=== PATIENT | male | born 1955 | race Hispanic/Latino ===

== ENCOUNTER 2021-08-03 10:28 | Inpatient (IN) | payer MEDICARE ==
--- NOTE | 2021-08-03 11:02 | Event Note ---
ED Screening Note Date of service: 08/03/21 Time: 10:59 ED Screening Note: 65-year-old male presents to the ER by private vehicle with complaints of shortness of breath. Patient states that he was diagnosed with COVID-19 around [place]. He was hospitalized at [facility] for a week. He states that he signed out AMA. He states that he had felt a little better after he left the hospital, but a day later his shortness of breath started to flareup again. Patient states that he went and got his own home oxygen and has been putting himself on 6 L a day and he states that even on 6 L he cannot get above 92%. He also admits that he was diagnosed with a left leg DVT while he was hospital ized at [place] but because he left AMA he has not been on any anticoagulants. He denies any lower extremity pain or swelling. He denies any fever since leaving the hospital. He states that he still has a cough and chest tightness but denies any wheezing, nausea, vomiting, diarrhea or abdominal pain. Patient past medical history significant for diabetes, hypertension, hyperlipidemia, COVID-19, left lower extremity DVT This initial assessment/diagnostic orders/clinical plan/treatment(s) is/are subject to change based on patients health status, clinical progression and re- assessment by fellow clinical providers in the ED. Further treatment and workup at subsequent clinical providers discretion. Patient/guardian urged not to elope from the ED as their condition may be serious if not clinically assessed and managed. Initial orders include: Labs including chest x-ray and CTA chest and EKG
[2021-08-03] MEDS ORDERED: dexAMETHasone 4 MG/ML VIAL IV ONE (11:03)
--- NOTE | 2021-08-03 11:17 | Emergency Department Report ---
ED General Adult HPI - General Chief complaint: Dyspnea/Respdistress Stated complaint: COVID/ SHORTNESS OF BREATH PUI?: Yes Time Seen by Provider: 08/03/21 11:03 Source: patient, RN notes reviewed Mode of arrival: Wheelchair Limitations: No Limitations - History of Present Illness Initial comments: The patient was evaluated in the emergency department for symptoms described in the history of present illness. He/she was evaluated in the context of the global COVID-19 pandemic, which necessitated consideration that the patient might be at risk for infection with the virus that causes COVID-19. Institutional protocols and algorithms that pertain to the evaluation of patients at risk for COVID-19 are in a state of rapid change based on information released by regulatory bodies including the CDC and federal and state organizations. These policies and algorithms were followed during the patient's care in the emergency department. Please note that these policies, procedures and recommendations changed on a rapid basis. This patient is a pleasant 65-year-old gentleman. He reports a past medical history of diabetes and COVID-19. Patient reports that he was initially diagnosed with COVID-19 around 2020, and subsequently felt like he recovered. He further reports that he was seen at [facility] in the beginning of this month, for recurrent shortness of breath, he believes he had a CT angiogram of the chest which was negative for acute findings, and a lower extremity DVT study which she believes was positive for DVT, but he does not know if it is distal or at the level of the popliteal trifurcation. He reports that at that time, admission was recommended, for unclear reasons to himself, and he signed out AGAINST MEDICAL ADVICE. He presents to the ER today with a complaint of painless shortness of breath. He denies headache, neck pain, abdominal pain, vomiting, hematemesis and bright red blood per rectum. He is on supplemental oxygen, and reports that he feels improved. He reports that after his initial diagnosis of COVID-19, he "felt a lot better and was running around", and reports that his shortness of breath has gradually gotten worse over the past few weeks. -: Gradual, days(s), week(s) Consistency: constant Improves with: rest, other (Supplemental oxygen) Worsens with: movement - Related Data Allergies Allergy/AdvReac Type Severity Reaction Status Date / Time No Known Allergies Allergy Unverified 08/03/21 10:30 ED Review of Systems ROS: Stated complaint: COVID/ SHORTNESS OF BREATH Other details as noted in HPI Constitutional: malaise, weakness Eyes: denies: eye discharge ENT: congestion Respiratory: shortness of breath Cardiovascular: dyspnea on exertion. denies: chest pain Gastrointestinal: denies: hematemesis, melena, hematochezia Musculoskeletal: denies: myalgia Neurological: weakness Hematological/Lymphatic: denies: easy bleeding ED Past Medical Hx - Past Medical History Hx Hypertension: Yes Hx Diabetes: Yes Additional medical history: COVID - Surgical History Additional Surgical History: ACHILLES WRIST BOWEL RESECTION ED Physical Exam - General Limitations: Physical Limitation General appearance: alert, anxious, in distress - Head Head exam: Present: atraumatic, normocephalic - Eye Eye exam: Present: normal appearance, EOMI. Absent: nystagmus - ENT ENT exam: Present: normal exam, normal orophraynx, mucous membranes moist, normal external ear exam - Neck Neck exam: Present: normal inspection, full ROM. Absent: tenderness, meningismus - Respiratory Respiratory exam: Present: respiratory distress, accessory muscle use. Absent: wheezes, rales, rhonchi, stridor - Cardiovascular Cardiovascular Exam: Present: normal rhythm, tachycardia, normal heart sounds. Absent: bradycardia, irregular rhythm, systolic murmur, diastolic murmur, rubs, gallop - GI/Abdominal GI/Abdominal exam: Present: soft. Absent: distended, tenderness, guarding, rebound, rigid, pulsatile mass - Rectal Rectal exam: Present: deferred - Extremities Exam Extremities exam: Present: normal inspection, full ROM, pedal edema (1+ edema in the bilateral lower extremities), other (2+ pulses noted in the bilateral upper and lower extremities. There is no long bony tenderness. The muscular compartments are soft.). Absent: calf tenderness - Back Exam Back exam: Present: normal inspection. Absent: tenderness, CVA tenderness (R), CVA tenderness (L), paraspinal tenderness, vertebral tenderness - Neurological Exam Neurological exam: Present: alert, oriented X3, other (No facial droop. Tongue midline. Extraocular movements intact bilaterally. Facial sensation intact to light touch in V1, V2, V3 distribution bilaterally. 5 and a 5 strength in 4 extremities. Sensation intact to light touch in 4 extremities.). Absent: motor sensory deficit - Psychiatric Psychiatric exam: Present: anxious - Skin Skin exam: Present: warm, dry, intact, normal color. Absent: rash ED Course Vital Signs 08/03/21 10:34 Temperature 98.3 F Pulse Rate 102 H Respiratory 26 H Rate Blood Pressure 136/70 O2 Sat by Pulse 86 Oximetry - Reevaluation(s) Reevaluation #1: 08/03/21 11:47 Differential diagnosis, including but not limited to: Pulmonary embolism, COVID- 19 long-hauler, COVID lung, history of DVT, acute on chronic hypoxic respiratory failure Assessment and plan: 65-year-old gentleman, presenting during the COVID-19 pandemic, with COVID long-haul symptoms. Place patient in isolation, start steroids, administer supplemental oxygen, attempt to obtain medical records from [facility], obtain appropriate laboratory studies, and CT angiogram of the chest. I have recommended adm ission. I discussed this plan of care with the patient. He articulated understanding. Reassess after acquisition of data points 08/03/21 13:21 Laboratory studies reviewed and appreciated. Inflammatory markers elevated as anticipated. Admitted to internal medicine service under the care of Dr. Interiano. Patient will be observed in this ER as well, and we will follow-up on CT angiogram chest. Robitussin ordered for antitussive symptomatic request from patient. ED Medical Decision Making - Lab Data Result diagrams: 08/03/21 11:28 08/03/21 11:28 Vital Signs 08/03/21 10:34 Temperature 98.3 F Pulse Rate 102 H Respiratory 26 H Rate Blood Pressure 136/70 O2 Sat by Pulse 86 Oximetry Lab Results 08/03/21 08/03/21 08/03/21 Range/Units 11:28 11:28 11:28 WBC 7.4 (4.5-11.0) K/mm3 RBC 4.41 (3.65-5.03) M/mm3 Hgb 12.8 (11.8-15.2) gm/dl Hct 39.1 (35.5-45.6) % MCV 89 (84-94) fl MCH 29 (28-32) pg MCHC 33 (32-34) % RDW 13.5 (13.2-15.2) % Plt Count 262 (140-440) K/mm3 Lymph % (Auto) 15.4 (13.4-35.0) % [place] % (Auto) 9.9 H (0.0-7.3) % Eos % (Auto) 1.2 (0.0-4.3) % Baso % (Auto) 0.5 (0.0-1.8) % Lymph # (Auto) 1.1 L (1.2-5.4) K/mm3 [place] # (Auto) 0.7 (0.0-0.8) K/mm3 Eos # (Auto) 0.1 (0.0-0.4) K/mm3 Baso # (Auto) 0.0 (0.0-0.1) K/mm3 Seg Neutrophils % 73.0 H (40.0-70.0) % Seg Neutrophils # 5.4 (1.8-7.7) K/mm3 PT 12.9 (12.2-14.9) Sec. INR 0.88 (0.87-1.13) D-Dimer 1615.65 H (0-234) ng/mlDDU Sodium 140 (137-145) mmol/L Potassium 4.5 (3.6-5.0) mmol/L Chloride 99.2 (98-107) mmol/L Carbon Dioxide 26 (22-30) mmol/L Anion Gap 19 mmol/L BUN 9 (9-20) mg/dL Creatinine 0.8 (0.8-1.3) mg/dL Estimated GFR > 60 ml/min BUN/Creatinine Ratio 11 % Glucose 174 H (75-100) mg/dL Calcium 9.7 (8.4-10.2) mg/dL Magnesium (1.7-2.3) mg/dL Ferritin (30.0-300.0) ng/mL Total Bilirubin 0.50 (0.1-1.2) mg/dL AST 25 (5-40) units/L ALT 39 (7-56) units/L Alkaline Phosphatase 62 (35-129) units/L Lactate Dehydrogenase (91-180) units/L Troponin T < 0.010 (0.00-0.029) ng/mL C-Reactive Protein (0.00-1.30) mg/dL NT-Pro-B Natriuret Pep 595.3 (0-900) pg/mL Total Protein 7.7 (6.3-8.2) g/dL Albumin 3.4 L (3.9-5) g/dL Albumin/Globulin Ratio 0.8 % 08/03/21 08/03/21 Range/Units 11:28 11:28 WBC (4.5-11.0) K/mm3 RBC (3.65-5.03) M/mm3 Hgb (11.8-15.2) gm/dl Hct (35.5-45.6) % MCV (84-94) fl MCH (28-32) pg MCHC (32-34) % RDW (13.2-15.2) % Plt Count (140-440) K/mm3 Lymph % (Auto) (13.4-35.0) % [place] % (Auto) (0.0-7.3) % Eos % (Auto) (0.0-4.3) % Baso % (Auto) (0.0-1.8) % Lymph # (Auto) (1.2-5.4) K/mm3 [place] # (Auto) (0.0-0.8) K/mm3 Eos # (Auto) (0.0-0.4) K/mm3 Baso # (Auto) (0.0-0.1) K/mm3 Seg Neutrophils % (40.0-70.0) % Seg Neutrophils # (1.8-7.7) K/mm3 PT (12.2-14.9) Sec. INR (0.87-1.13) D-Dimer (0-234) ng/mlDDU Sodium (137-145) mmol/L Potassium (3.6-5.0) mmol/L Chloride (98-107) mmol/L Carbon Dioxide (22-30) mmol/L Anion Gap mmol/L BUN (9-20) mg/dL Creatinine (0.8-1.3) mg/dL Estimated GFR ml/min BUN/Creatinine Ratio % Glucose 178 H (75-100) mg/dL Calcium (8.4-10.2) mg/dL Magnesium 1.80 (1.7-2.3) mg/dL Ferritin 296.5 (30.0-300.0) ng/mL Total Bilirubin (0.1-1.2) mg/dL AST (5-40) units/L ALT (7-56) units/L Alkaline Phosphatase (35-129) units/L Lactate Dehydrogenase 426 H (91-180) units/L Troponin T (0.00-0.029) ng/mL C-Reactive Protein 7.10 H (0.00-1.30) mg/dL NT-Pro-B Natriuret Pep (0-900) pg/mL Total Protein (6.3-8.2) g/dL Albumin (3.9-5) g/dL Albumin/Globulin Ratio % - EKG Data -: EKG Interpreted by Nh EKG shows normal: sinus rhythm Rate: normal - EKG Data When compared to previous EKG there are: previous EKG unavailable 08/03/21 11:59 EKG is interpreted at 11: 42 Sinus rhythm, rate 92 bpm. Left axis deviation. Normal P wave axis. Left ventricular hypertrophy. Motion artifact. MD interval acceptable/within normal limits. QTc 461 ms. This is not a STEMI. There is no prior for comparison - Radiology Data Radiology results: report reviewed, image reviewed CHEST 1 VIEW 08/03/2021 11:52 AM INDICATION / CLINICAL INFORMATION: Dyspnea. COMPARISON: None available. FINDINGS: SUPPORT DEVICES: None. HEART / MEDIASTINUM: Cardiomegaly LUNGS / PLEURA: Diffuse opacities in bilateral lungs No pneumothorax. ADDITIONAL FINDINGS: No significant additional findings. IMPRESSION: 1. Diffuse bilateral pulmonary opacities Signer Name: Darian Santos MD Signed: 08/03/2021 11:06 AM Workstation Name: [email or web address] CTA CHEST WITH IV CONTRAST INDICATION: acute dyspnea, hx of dvt, covid. TECHNIQUE: Axial CT images were obtained through the chest after injection of IV contrast. 3 plane MIP reconstructions were produced. All CT scans at this location are performed using CT dose reduction for ALARA by means of automated exposure control. COMPARISON: None available. FINDINGS: Pulmonary Arteries: Respiratory motion evaluation of the peripheral pulmonary arterial tree, particularly in the bases. Accounting for this, no acute PTE is seen. Thoracic Aorta: No acute abnormality. Heart: Overall heart size is normal. There is moderate coronary artery calcification. Lungs: Patchy predominantly peripheral airspace opacities are noted bilaterally. Pleura: There are trace pleural ef fusions. No pneumothorax. Lymph Nodes: No significant adenopathy. Additional Findings: None. Upper Abdomen: No acute findings. Skeletal Structures: No significant osseous abnormality. Healed anterior inferior right rib fractures are incidentally noted. IMPRESSION: 1. There is significant respiratory motion which limits evaluation of the peripheral pulmonary arterial tree. No central PTE is seen in the main, right, and left pulmonary arteries. 2. Somewhat patchy predominantly peripheral bilateral airspace opacities are nonspecific but most likely due to pneumonia. There are trace bilateral pleural effusions. Signer Name: Stephen Castaneda MD Signed: 08/03/2021 12:50 PM Workstation Name: [email or web address] Critical Care Time: Yes Critical care time in (mins) excluding proc time.: 35 Critical care attestation.: If time is entered above; I have spent that time in minutes in the direct care of this critically ill patient, excluding procedure time. ED Disposition Clinical Impression: Acute respiratory failure with hypoxia, COVID-19 Disposition: 09 ADMITTED INPATIENT Is pt being admited?: Yes Does the pt Need Aspirin: No Condition: Fair
[2021-08-03] MEDS ORDERED: AZITHROMYCIN/NS 500 MG/250 ML 500 MG/250 ML BAG IV ONE (11:58)
[2021-08-03] MEDS ORDERED: cefTRIAXone/NS 1 GM/50 ML 1 GM/50 ML BAG IV ONE (11:58)
--- NOTE | 2021-08-03 12:10 | XRay Report ---
CHEST 1 VIEW 08/03/2021 11:52 AM INDICATION / CLINICAL INFORMATION: Dyspnea. COMPARISON: None available. FINDINGS: SUPPORT DEVICES: None. HEART / MEDIASTINUM: Cardiomegaly LUNGS / PLEURA: Diffuse opacities in bilateral lungs No pneumothorax. ADDITIONAL FINDINGS: No significant additional findings. IMPRESSION: 1. Diffuse bilateral pulmonary opacities Signer Name: Darian Santos MD Signed: 08/03/2021 12:06 PM Workstation Name: [email or web address] [email or web address]
[2021-08-03 12:46] LABS: Basophils % (Auto) 0.5 % (0.0-1.8); Eosinophils # (Auto) 0.1 K/mm3 (0.0-0.4); Eosinophils % (Auto) 1.2 % (0.0-4.3); Hematocrit 39.1 % (35.5-45.6); Hemoglobin 12.8 gm/dl (11.8-15.2); Lymphocytes # (Auto) 1.1 K/mm3 (1.2-5.4); Lymphocytes % (Auto) 15.4 % (13.4-35.0); Mean Corpuscular HGB Conc 33 % (32-34); Mean Corpuscular Volume 89 fl (84-94); Monocytes # (Auto) 0.7 K/mm3 (0.0-0.8); Monocytes % (Auto) 9.9 % (0.0-7.3); Platelet Count 262 K/mm3 (140-440); Red Blood Count 4.41 M/mm3 (3.65-5.03); Red Cell Distribution Width 13.5 % (13.2-15.2)
[2021-08-03 12:56] LABS: INR 0.88 (0.87-1.13)
[2021-08-03 13:09] LABS: Alanine Aminotransferase 39 units/L (7-56); Albumin 3.4 g/dL (3.9-5); BUN/Creatinine Ratio 11; Blood Urea Nitrogen 9 mg/dL (9-20); Calcium 9.7 mg/dL (8.4-10.2); Hemolysis Index 30
[2021-08-03 13:10] LABS: C-Reactive Protein 7.1 mg/dL (0.00-1.30)
[2021-08-03] MEDS ORDERED: guaiFENesin 100 MG/5 ML ORAL LIQD PO ONE (13:16)
--- NOTE | 2021-08-03 13:21 | History and Physical Report ---
History of Present Illness Chief complaint: My breathing is bad again History of present illness: 65 YO Male with HTN, DM, Metabolic Syndrome, Coronavirus Infectioin Diagnosed 07/11/2021 presents to ED for evaluation. Patient reports "my breathing has gotten bad again". Patient states that he had experienced shortness of breath over the past 2 weeks with persistent and worsening symptoms over the past 1 week. Patient acknowledges malaise, dry cough, shortness of breath, decreased exercise tolerance, subjective fever. Patient transported to [facility] via private vehicle for further care and evaluation of the aforementioned symptoms. The patient was seen and evaluated the emergency department. All lab and medica tions reviewed. Patient was found to have a pulse oximetry of 86% on room air which is consistent with acute hypoxemic respiratory failure. Chest x-ray revealed evidence of pneumonia. Patient admitted to medical floor due to increased risk of worsening symptoms. Patient initiated on pneumonia protocol as well as coronavirus protocol. Patient knowledges subjective fever denies chills, chest pain, palpitation, skin rash, recent ill contacts. Patient previously diagnosed with COVID-19. No prior admission for review. No medication listed at time of admission for reconciliation. Advanced care planning conducted in ED. Past History Past Medical History: diabetes, hypertension, other (See HPI) Past Surgical History: bowel surgery Social history: . denies: smoking, alcohol abuse, prescription drug abuse Family history: diabetes, hypertension Medications and Allergies Allergies Allergy/AdvReac Type Severity Reaction Status Date / Time No Known Allergies Allergy Unverified 08/03/21 10:30 Review of Systems Constitutional: fever, fatigue, weakness, malaise Ears, nose, mouth and throat: no ear pain, no tinnitis, no decreased hearing, no nose pain, no nasal congestion Cardiovascular: no chest pain, no orthopnea, no rapid/irregular heart beat, no edema Respiratory: cough, shortness of breath, no wheezing, no pleurisy Gastrointestinal: no abdominal pain, no nausea, no vomiting, no diarrhea, no constipation Genitourinary Male: no hematuria, no flank pain, no discharge, no urinary frequency, no urinary hesitancy Rectal: no pain, no incontinence, no bleeding Musculoskeletal: no neck stiffness, no shooting arm pain, no low back pain, no shooting leg pain Integumentary: no rash, no redness, no sores, no wounds, no jaundice Neurological: no head injury, no weakness, no numbness, no tingling Psychiatric: no anxiety, no insomnia Endocrine: no cold intolerance, no polyphagia, no excessive thirst, no nocturia Hematologic/Lymphatic: no easy bruising, no easy bleeding, no lymphadenopathy Allergic/Immunologic: no urticaria, no allergic rhinitis, no persistent infections Exam - Constitutional Vitals: Temp Pulse Resp BP Pulse Ox 98.3 F 102 H 26 H 136/70 86 08/03/21 10:34 08/03/21 10:34 08/03/21 10:34 08/03/21 10:34 08/03/21 10:34 General appearance: Present: mild distress - EENT Eyes: Present: PERRL ENT: hearing intact, clear oral mucosa - Neck Neck: Present: supple, normal ROM - Respiratory Respiratory effort: labored, accessory muscle use Respiratory: bilateral: diminished, rhonchi - Cardiovascular Heart Sounds: Present: S1 & S2. Absent: rub, click - Extremities Extremities: pulses symmetrical, No edema Peripheral Pulses: within normal limits - Abdominal General gastrointestinal: Present: soft, non-tender, non-distended, normal bowel sounds Male genitourinary: Present: normal - Integumentary Integumentary: Present: clear, warm, dry - Musculoskeletal Musculoskeletal: gait normal, strength equal bilaterally - Psychiatric Psychiatric: appropriate mood/affect, intact judgment & insight - Neurologic Neurologic: CNII-XII intact, moves all extremities HEART Score - HEART Score Troponin: Troponin T < 0.010 ng/mL (0.00-0.029) 08/03/21 11:28 Results - Labs CBC & Chem 7: 08/03/21 11:28 08/03/21 11:28 Labs: Abnormal lab results 08/03/21 08/03/21 08/03/21 Range/Units 11:28 11:28 11:28 [place] % (Auto) 9.9 H (0.0-7.3) % Lymph # (Auto) 1.1 L (1.2-5.4) K/mm3 Seg Neutrophils % 73.0 H (40.0-70.0) % D-Dimer 1615.65 H (0-234) ng/mlDDU Glucose 174 H (75-100) mg/dL Lactate Dehydrogenase (91-180) units/L C-Reactive Protein (0.00-1.30) mg/dL Albumin 3.4 L (3.9-5) g/dL 08/03/21 Range/Units 11:28 [place] % (Auto) (0.0-7.3) % Lymph # (Auto) (1.2-5.4) K/mm3 Seg Neutrophils % (40.0-70.0) % D-Dimer (0-234) ng/mlDDU Glucose 178 H (75-100) mg/dL Lactate Dehydrogenase 426 H (91-180) units/L C-Reactive Protein 7.10 H (0.00-1.30) mg/dL Albumin (3.9-5) g/dL Assessment and Plan - Patient Problems (1) Acute respiratory failure with hypoxia Current Visit: Yes Status: Acute Plan to address problem: Chest x-ray, supplemental oxygen, pulse oximetry, nebulizer therapy, pulmonary toilet, will consider high flow supplemental oxygen if patient is unable to name pulse oximetry on supplemental oxygen with nasal cannula, pulmonary toilet. (2) Pneumonia Current Visit: Yes Status: Acute Plan to address problem: Protocol: Chest x-ray, CBC, CMP, supplemental oxygen, pulse oximetry, nebulizer therapy, IV antibiotic therapy. (3) COVID-19 Current Visit: Yes Status: Acute Plan to address problem: Coronavirus protocol: IV antibiotic therapy, steroid therapy, supplemental oxygen, pulse oximetry, vitamin C therapy, vitamin D3, zinc therapy, prophylactic anticoagulation. (4) Hypertension Current Visit: Yes Status: Acute Qualifiers: Hypertension type: primary hypertension Qualified Code(s): I10 - Essential (primary) hypertension Plan to address problem: Monitor blood pressure every shift, continue medical management. (5) Diabetes Current Visit: Yes Status: Acute Plan to address problem: Consistent carbohydrate diet, insulin protocol, hypoglycemia protocol, Accu-Cheks. (6) Metabolic syndrome Current Visit: Yes Status: Acute Plan to address problem: Low-cholesterol diet, supportive care, blood glucose control, blood pressure control. Increase physical activity at discharge. (7) DVT prophylaxis Current Visit: Yes Status: Acute Plan to address problem: SCD to bilateral lower extremities while in bed, prophylactic anticoagulation (8) Advance care planning Current Visit: Yes Status: Acute Plan to address problem: Disease education conducted, care plan discussed, diagnosis discussed, prognosis discussed, patient is full code. Patient acknowledges understanding and agreeme nt with care plan, +30 minutes.
[2021-08-03] MEDS ORDERED: ALBUTEROL 2.5 MG/3 ML NEBU IH PRN (13:22)
[2021-08-03] MEDS ORDERED: HYDROmorphone 1 MG/1 ML INJ IV PRN (13:22)
[2021-08-03] MEDS ORDERED: oxyCODONE /ACETAMINOPHEN 5-325MG TAB PO PRN (13:22)
[2021-08-03] MEDS ORDERED: ACETAMINOPHEN 325 MG TAB PO PRN (13:22)
[2021-08-03] MEDS ORDERED: ONDANSETRON 4 MG/2 ML INJ IV PRN (13:22)
[2021-08-03] MEDS: cefTRIAXone/NS 2 GM/100 ML 2 GM/100 ML BAG IV SCH ×2 (13:30→14:28)
--- NOTE | 2021-08-03 13:55 | Cat Scan Report ---
CTA CHEST WITH IV CONTRAST INDICATION: acute dyspnea, hx of dvt, covid. TECHNIQUE: Axial CT images were obtained through the chest after injection of IV contrast. 3 plane MIP reconstru ctions were produced. All CT scans at this location are performed using CT dose reduction for ALARA b y means of automated exposure control. COMPARISON: None available. FINDINGS: Pulmonary Arteries: Respiratory motion evaluation of the peripheral pulmonary arterial tree, particul allison in the bases. Accounting for this, no acute PTE is seen. Thoracic Aorta: No acute abnormality. Heart: Overall heart size is normal. There is moderate coronary artery calcification. Lungs: Patchy predominantly peripheral airspace opacities are noted bilaterally. Pleura: There are trace pleural effusions. No pneumothorax. Lymph Nodes: No significant adenopathy. Additional Findings: None. Upper Abdomen: No acute findings. Skeletal Structures: No significant osseous abnormality. Healed anterior inferior right rib fractures are incidentally noted. IMPRESSION: 1. There is significant respiratory motion which limits evaluation of the peripheral pulmonary arteri al tree. No central PTE is seen in the main, right, and left pulmonary arteries. 2. Somewhat patchy predominantly peripheral bilateral airspace opacities are nonspecific but most lik celine due to pneumonia. There are trace bilateral pleural effusions. Signer Name: Stephen Castaneda MD Signed: 08/03/2021 1:50 PM Workstation Name: [email or web address]
[2021-08-03] MEDS ORDERED: AZITHROMYCIN/NS 500 MG/250 ML 500 MG/250 ML BAG IV SCH (14:00)
[2021-08-03] MEDS: methylPREDNISolone Sod Succinate 40 MG/1 ML INJ IV SCH ×2 (14:29→23:00)
[2021-08-03] MEDS: HEPARIN 5,000 UNIT/1 ML VIAL SUB-Q SCH (22:59)
[2021-08-03] MEDS: ASCORBIC ACID 500 MG TAB PO SCH (23:00)
[2021-08-03] MEDS: guaiFENesin/CODEINE 100-10MG ORAL LIQD 5 ML PO PRN (23:29)
[2021-08-03] MEDS: ZINC SULFATE 220 MG CAP PO SCH (23:35)
[2021-08-04 05:18] LABS: Basophils % (Auto) 0.1 % (0.0-1.8); Hematocrit 34.1 % (35.5-45.6); Hemoglobin 11.3 gm/dl (11.8-15.2); Lymphocytes # (Auto) 0.6 K/mm3 (1.2-5.4); Lymphocytes % (Auto) 13.3 % (13.4-35.0); Mean Corpuscular HGB Conc 33 % (32-34); Mean Corpuscular Volume 87 fl (84-94); Monocytes # (Auto) 0.1 K/mm3 (0.0-0.8); Monocytes % (Auto) 1.6 % (0.0-7.3); Platelet Count 205 K/mm3 (140-440); Red Cell Distribution Width 13.4 % (13.2-15.2)
[2021-08-04 05:36] LABS: Blood Urea Nitrogen 18 mg/dL (9-20); Calcium 8.2 mg/dL (8.4-10.2); Hemolysis Index 1
[2021-08-04 05:39] LABS: BUN/Creatinine Ratio 26
[2021-08-04] MEDS: methylPREDNISolone Sod Succinate 40 MG/1 ML INJ IV SCH ×2 (05:52→09:50)
[2021-08-04] MEDS: INSULIN LISPRO 100 UNIT/ML SUB-Q SCH ×4 (08:00→22:38)
[2021-08-04] MEDS ORDERED: DEXTROSE 50% IN WATER (25GM) 50 ML SYRINGE IV PRN (08:16)
[2021-08-04] MEDS ORDERED: REMDESIVIR 200 MG in SODIUM CHLORIDE 0.9% 250ML 250 ML IV ONE (08:17)
--- NOTE | 2021-08-04 08:19 | Progress Note ---
Assessment and Plan Assessment and plan: #Acute hypoxic respiratory failure #COVID 19 pneumonia -Currently on 8 L nasal cannula, will wean as tolerated -CT angio of chest negative for PE -Continue Solu-Medrol and COVID vitamins -Continue azithromycin and Rocephin for CAP coverage -Coronavirus PCR 08/04 indeterminate; repeat ordered -Infectious disease following, assistance appreciated #Elevated D-dimer -D-dimer 1615 -CT findings as above -Likely secondary to COVID infection #Hypertension -will resume home antihypertensive medications #Type 2 diabetes -Sliding scale started -Patient takes oral medications at home; will hold while inpatient -Goal glucose [id number] while inpatient #Advanced care planning -Disease education conducted, care plan discussed, diagnoses discussed, prognosis discussed, and patient acknowledges understanding with care plan -Time: +30 min Disposition Plan: Continue medical management History Interval history: Patient reports dyspnea on exertion. Otherwise no complaints at this time. Hospitalist Physical - Physical exam Narrative exam: GENERAL: Well-developed well-nourished. In bed in no acute distress. HEENT: Nasal cannula in place 8 L/min CHEST/LUNGS: Coarse breath sounds bilaterally. HEART/CARDIOVASCULAR: RRR. No murmur, rubs or gallops appreciated. ABDOMEN: +BS. NT/ND. SKIN: No rashes noted. NEURO: No focal motor deficit. Follows all commands and is ambulatory. MUSCULOSKELETAL: No joint effusion EXTREMITIES: No cyanosis, clubbing or edema. PSYCH: Cooperative. - Constitutional Vitals: Temp Pulse Resp BP Pulse Ox 98.2 F 82 18 154/78 90 08/04/21 05:26 08/04/21 05:55 08/04/21 05:26 08/04/21 05:55 08/04/21 05:26 General appearance: Present: mild distress HEART Score - HEART Score Troponin: Troponin T < 0.010 ng/mL (0.00-0.029) 08/03/21 11:28 Results - Labs CBC & Chem 7: 08/04/21 04:28 08/06/21 06:19 Labs: Laboratory Last Values WBC 4.6 K/mm3 (4.5-11.0) 08/04/21 04:28 RBC 3.90 M/mm3 (3.65-5.03) 08/04/21 04:28 Hgb 11.3 gm/dl (11.8-15.2) L 08/04/21 04:28 Hct 34.1 % (35.5-45.6) L 08/04/21 04:28 MCV 87 fl (84-94) 08/04/21 04:28 MCH 29 pg (28-32) 08/04/21 04:28 MCHC 33 % (32-34) 08/04/21 04:28 RDW 13.4 % (13.2-15.2) 08/04/21 04:28 Plt Count 205 K/mm3 (140-440) 08/04/21 04:28 Lymph % (Auto) 13.3 % (13.4-35.0) L 08/04/21 04:28 Amite % (Auto) 1.6 % (0.0-7.3) 08/04/21 04:28 Eos % (Auto) 0.0 % (0.0-4.3) 08/04/21 04:28 Baso % (Auto) 0.1 % (0.0-1.8) 08/04/21 04:28 Lymph # (Auto) 0.6 K/mm3 (1.2-5.4) L 08/04/21 04:28 Amite # (Auto) 0.1 K/mm3 (0.0-0.8) 08/04/21 04:28 Eos # (Auto) 0.0 K/mm3 (0.0-0.4) 08/04/21 04:28 Baso # (Auto) 0.0 K/mm3 (0.0-0.1) 08/04/21 04:28 Seg Neutrophils % 85.0 % (40.0-70.0) H 08/04/21 04:28 Seg Neutrophils # 3.9 K/mm3 (1.8-7.7) 08/04/21 04:28 PT 12.9 Sec. (12.2-14.9) 08/03/21 11:28 INR 0.88 (0.87-1.13) 08/03/21 11:28 D-Dimer 1615.65 ng/mlDDU (0-234) H 08/03/21 11:28 Sodium 133 mmol/L (137-145) L 08/04/21 04:28 Potassium 4.6 mmol/L (3.6-5.0) 08/04/21 04:28 Chloride 97.1 mmol/L (98-107) L 08/04/21 04:28 Carbon Dioxide 22 mmol/L (22-30) 08/04/21 04:28 Anion Gap 19 mmol/L 08/04/21 04:28 BUN 18 mg/dL (9-20) 08/04/21 04:28 Creatinine 0.7 mg/dL (0.8-1.3) L 08/04/21 04:28 Estimated GFR > 60 ml/min 08/04/21 04:28 BUN/Creatinine Ratio 26 % 08/04/21 04:28 Glucose 318 mg/dL (75-100) H 08/04/21 04:28 POC Glucose 265 mg/dL (70-105) H 08/04/21 07:48 Calcium 8.2 mg/dL (8.4-10.2) L D 08/04/21 04:28 Magnesium 1.80 mg/dL (1.7-2.3) 08/03/21 11:28 Ferritin 296.5 ng/mL (30.0-300.0) 08/03/21 11:28 Total Bilirubin 0.50 mg/dL (0.1-1.2) 08/03/21 11:28 AST 25 units/L (5-40) 08/03/21 11:28 ALT 39 units/L (7-56) 08/03/21 11:28 Alkaline Phosphatase 62 units/L (35-129) 08/03/21 11:28 Lactate Dehydrogenase 426 units/L (91-180) H 08/03/21 11:28 Troponin T < 0.010 ng/mL (0.00-0.029) 08/03/21 11:28 C-Reactive Protein 7.10 mg/dL (0.00-1.30) H 08/03/21 11:28 NT-Pro-B Natriuret Pep 595.3 pg/mL (0-900) 08/03/21 11:28 Total Protein 7.7 g/dL (6.3-8.2) 08/03/21 11:28 Albumin 3.4 g/dL (3.9-5) L 08/03/21 11:28 Albumin/Globulin Ratio 0.8 % 08/03/21 11:28 Microbiology: Microbiology 08/03/21 11:28 Peripheral/Venous Blood Culture - Preliminary Culture in Progress 08/03/21 11:28 Peripheral/Venous Blood Culture - Preliminary Culture in Progress Active Medications - Current Medications Current Medications: Generic Name Dose Route Start Last Admin Trade Name Freq PRN Reason Stop Dose Admin Acetaminophen 650 mg 08/03/21 13:22 Acetaminophen 325 Mg Tab PO Q4H PRN Pain MILD(1-3)/Fever >100.5/MASSEY Albuterol 2.5 mg 08/03/21 13:22 Albuterol 2.5 Mg/3 Ml Nebu IH Q4HRT PRN Shortness Of Breath Ascorbic Acid 500 mg 08/03/21 22:00 08/03/21 23:00 Ascorbic Acid 500 Mg Tab PO 500 mg BID SHENG Administration Azithromycin 500 mg 08/04/21 14:00 Azithromycin 250 Mg Tab PO 08/07/21 14:01 Q24H SHENG Cholecalciferol 1,000 unit 08/04/21 10:00 Cholecalciferol (Vit D3) 400 Unit Tab PO QDAY SHENG Dextrose 50 ml 08/04/21 08:16 Dextrose 50% In Water (25gm) 50 Ml Syringe IV Q30MIN PRN Hypoglycemia Protocol Heparin Sodium (Porcine) 5,000 unit 08/03/21 22:00 08/03/21 22:59 Heparin 5,000 Unit/1 Ml Vial SUB-Q 5,000 unit Q12HR SHENG Administration Hydromorphone HCl 0.5 mg 08/03/21 13:22 Hydromorphone 1 Mg/1 Ml Inj IV Q23H PRN Pain , Severe (7-10) Ceftriaxone Sodium 2 gm in 100 mls @ 200 mls/hr 08/03/21 14:00 08/03/21 13:30 Rocephin/Ns 2 Gm/100 Ml IV 200 mls/hr Q24H SHENG Administration Protocol REMDESIVIR 200 mg/ Sodium 250 mls @ 500 mls/hr 08/04/21 08:17 Chloride IV 08/04/21 08:46 ONCE ONE REMDESIVIR 100 mg/ Sodium 250 mls @ 500 mls/hr 08/05/21 21:00 Chloride IV 08/08/21 21:29 Q24HR@2100 [facility] Insulin Human Lispro 0 unit 08/04/21 11:30 Insulin Lispro 100 Unit/Ml SUB-Q ACHS SHENG Protocol Methylprednisolone Sodium Succinate 40 mg 08/04/21 10:00 Methylprednisolone Sod Succinate 40 Mg/1 Ml Inj IV QDAY [facility] Ondansetron HCl 4 mg 08/03/21 13:22 Ondansetron 4 Mg/2 Ml Inj IV Q8H PRN Nausea And Vomiting Oxycodone/Acetaminophen 1 tab 08/03/21 13:22 Oxycodone /Acetaminophen 5-325mg Tab PO Q16H PRN Pain, Moderate (4-6) Pseudoephedrine/Acetam/Chlorphenir 10 ml 08/03/21 22:40 08/03/21 23:29 Guaifenesin/Codeine 100-10mg Oral Liqd 5 Ml PO 10 ml Q6H PRN Administration Cough Sodium Chloride 10 ml 08/03/21 22:00 08/03/21 23:00 Sodium Chloride 0.9% 10 Ml Flush Syringe IV 10 ml BID SHENG Administration Sodium Chloride 10 ml 08/03/21 13:22 Sodium Chloride 0.9% 10 Ml Flush Syringe IV PRN PRN LINE FLUSH Sodium Chloride 50 ml 08/04/21 21:00 Sodium Chloride 0.9% 50 Ml Ivpb IV 08/08/21 21:01 Q24HR@2100 [facility] Zinc Sulfate 220 mg 08/03/21 22:00 08/03/21 23:35 Zinc Sulfate 220 Mg Cap PO Not Given BID [facility]
[2021-08-04] MEDS: HEPARIN 5,000 UNIT/1 ML VIAL SUB-Q SCH ×2 (09:49→21:12)
[2021-08-04] MEDS: ZINC SULFATE 220 MG CAP PO SCH ×2 (09:50→21:12)
[2021-08-04] MEDS: ASCORBIC ACID 500 MG TAB PO SCH ×2 (09:50→21:13)
[2021-08-04] MEDS ORDERED: CHOLECALCIFEROL (VIT D3) 400 UNIT TAB PO SCH ×2 (10:00)
[2021-08-04] MEDS: CHOLECALCIFEROL (VIT D3) 1000 UNIT (25 mcg) TAB PO SCH (11:05)
[2021-08-04] MEDS: guaiFENesin/CODEINE 100-10MG ORAL LIQD 5 ML PO PRN ×2 (12:24→18:41)
[2021-08-04] MEDS: AZITHROMYCIN 250 MG TAB PO SCH (14:32)
[2021-08-04] MEDS: cefTRIAXone/NS 2 GM/100 ML 2 GM/100 ML BAG IV SCH (14:32)
[2021-08-04 15:14] LABS: Bilirubin,Urine NEG (Negative); Blood,Urine NEG (Negative); Color,Urine Yellow (Yellow); Mucus,Urine FEW /HPF; Urobilinogen,Urine < 2.0 mg/dL (<2.0)
--- NOTE | 2021-08-04 15:38 | Consultation ---
History of Present Illness - Reason for Consult Consult date: 08/04/21 COVID-19 Requesting physician: JAYSON DENNISON - History of Present Illness The patient is a 65-year-old male with diabetes, hypertension, metabolic syndrome was diagnosed with COVID-19 on 07/11/2021 presented to the emergency room with worsening shortness of breath over the last 2 weeks. Upon evaluation in the ER, chest x-ray showed bilateral pneumonia, noted to be hypoxic on room air. Labs revealed normal WBC, platelet count, D-dimer 1615, CRP 7.1, LDH 426, ferritin 296. CTA showed patchy peripheral bilateral airspace opacities, no obvious PE seen. Review of Systems: reviewed in the chart, unable to obtain, minimize risk of transmission Past History Past Medical History: diabetes, hypertension, other (See HPI) Past Surgical History: bowel surgery Social history: . denies: smoking, alcohol abuse, prescription drug abuse Family history: diabetes, hypertension Medications and Allergies Allergies Allergy/AdvReac Type Severity Reaction Status Date / Time No Known Allergies Allergy Unverified 08/03/21 10:30 Home Medications Medication Instructions Recorded Confirmed Last Taken Type Aspirin EC [Halfprin EC] 81 mg PO QDAY 08/04/21 08/04/21 08/03/21 09:00 History Losartan [Cozaar] 100 mg PO QDAY 08/04/21 08/04/21 08/03/21 09:00 History Metformin HCl [metFORMIN] 1,000 mg PO BID 08/04/21 08/04/21 08/03/21 08:45 History Pravastatin Sodium [Pravastatin] 10 mg ONCE 08/04/21 08/04/21 08/03/21 09:00 History amLODIPine [Norvasc] 10 mg PO DAILY 08/04/21 08/04/21 08/03/21 08:45 History glipiZIDE [Glucotrol] 10 mg PO BID 08/04/21 08/04/21 08/03/21 08:45 History Active Meds: Active Medications Acetaminophen (Acetaminophen 325 Mg Tab) 650 mg PO Q4H PRN PRN Reason: Pain MILD(1-3)/Fever >100.5/MASSEY Albuterol (Albuterol 2.5 Mg/3 Ml Nebu) 2.5 mg IH Q4HRT PRN PRN Reason: Shortness Of Breath Ascorbic Acid (Ascorbic Acid 500 Mg Tab) 500 mg PO BID [facility] Last Admin: 08/04/21 09:50 Dose: 500 mg Azithromycin (Azithromycin 250 Mg Tab) 500 mg PO Q24H [facility] Stop: 08/07/21 14:01 Last Admin: 08/04/21 14:32 Dose: 500 mg Cholecalciferol (Cholecalciferol (Vit D3) 1000 Unit (25 Mcg) Tab) 1,000 unit PO DAILY [facility] Last Admin: 08/04/21 11:05 Dose: 1,000 unit Dextrose (Dextrose 50% In Water (25gm) 50 Ml Syringe) 50 ml IV Q30MIN PRN; Protocol PRN Reason: Hypoglycemia Heparin Sodium (Porcine) (Heparin 5,000 Unit/1 Ml Vial) 5,000 unit SUB-Q Q12HR [facility] Last Admin: 08/04/21 09:49 Dose: 5,000 unit Hydromorphone HCl (Hydromorphone 1 Mg/1 Ml Inj) 0.5 mg IV Q23H PRN PRN Reason: Pain , Severe (7-10) Ceftriaxone Sodium (Rocephin/Ns 2 Gm/100 Ml) 2 gm in 100 mls @ 200 mls/hr IV Q24H [facility]; Protocol Last Admin: 08/04/21 14:32 Dose: 200 mls/hr Insulin Human Lispro (Insulin Lispro 100 Unit/Ml) 0 unit SUB-Q ACHS [facility]; Protocol Last Admin: 08/04/21 11:30 Dose: 8 unit Methylprednisolone Sodium Succinate (Methylprednisolone Sod Succinate 40 Mg/1 Ml Inj) 40 mg IV QDAY [facility] Last Admin: 08/04/21 09:50 Dose: 40 mg Ondansetron HCl (Ondansetron 4 Mg/2 Ml Inj) 4 mg IV Q8H PRN PRN Reason: Nausea And Vomiting Oxycodone/Acetaminophen (Oxycodone /Acetaminophen 5-325mg Tab) 1 tab PO Q16H PRN PRN Reason: Pain, Moderate (4-6) Pseudoephedrine/Acetam/Chlorphenir (Guaifenesin/Codeine 100-10mg Oral Liqd 5 Ml) 10 ml PO Q6H PRN PRN Reason: Cough Last Admin: 08/04/21 12:24 Dose: 10 ml Sodium Chloride (Sodium Chloride 0.9% 10 Ml Flush Syringe) 10 ml IV BID [facility] Last Admin: 08/04/21 09:51 Dose: 10 ml Sodium Chloride (Sodium Chloride 0.9% 10 Ml Flush Syringe) 10 ml IV PRN PRN PRN Reason: LINE FLUSH Zinc Sulfate (Zinc Sulfate 220 Mg Cap) 220 mg PO BID [facility] Last Admin: 08/04/21 09:50 Dose: 220 mg Physical Examination - Physical Exam Narrative exam: Physical Exam (reviewed in chart to minimize risk of transmission) Constitutional: deferred Head, Ears, Nose: deferred Eyes: deferred Neck: deferred Oral: deferred Cardiovascular: deferred Respiratory: deferred GI: deferred Musculoskeletal: deferred Skin: deferred Hem/Lymphatic: deferred Psych: deferred Neurological: deferred - Constitutional Vitals: Vital Signs Temp Pulse Resp BP Pulse Ox 98.2 F 82 18 154/78 94 08/04/21 05:26 08/04/21 05:55 08/04/21 05:26 08/04/21 05:55 08/04/21 11:48 Temperature -Last 24 Hours Temperature 98.2 F Temperature 98.2 F Temperature 97.0 F Temperature 96.0 F Results - Labs CBC & Chem 7: 08/04/21 04:28 08/04/21 04:28 Labs: Abnormal lab results 08/04/21 08/04/21 08/04/21 Range/Units 04:28 04:28 07:48 Hgb 11.3 L (11.8-15.2) gm/dl Hct 34.1 L (35.5-45.6) % Lymph % (Auto) 13.3 L (13.4-35.0) % Lymph # (Auto) 0.6 L (1.2-5.4) K/mm3 Seg Neutrophils % 85.0 H (40.0-70.0) % Sodium 133 L (137-145) mmol/L Chloride 97.1 L (98-107) mmol/L Creatinine 0.7 L (0.8-1.3) mg/dL Glucose 318 H (75-100) mg/dL POC Glucose 265 H (70-105) mg/dL Calcium 8.2 L D (8.4-10.2) mg/dL 08/04/21 Range/Units 12:31 Hgb (11.8-15.2) gm/dl Hct (35.5-45.6) % Lymph % (Auto) (13.4-35.0) % Lymph # (Auto) (1.2-5.4) K/mm3 Seg Neutrophils % (40.0-70.0) % Sodium (137-145) mmol/L Chloride (98-107) mmol/L Creatinine (0.8-1.3) mg/dL Glucose (75-100) mg/dL POC Glucose 301 H (70-105) mg/dL Calcium (8.4-10.2) mg/dL - Imaging and Cardiology Chest x-ray: report reviewed, image reviewed (b/l pna) CT scan - chest: report reviewed Assessment and Plan Cultures: SARS CoV2 PCR: Pending but positive as outpatient 08/03/2021 blood culture: No growth A/P: 65-year-old male with diabetes, hypertension, metabolic syndrome was diagnosed with COVID-19 on 07/11/2021, now with: #Bilateral pneumonia: Secondary to COVID-19. Tested positive as outpatient more than 2 weeks ago. #Acute hypoxic respiratory failure: Secondary to above. Requiring nasal cannula. #Diabetes mellitus, uncontrolled Recs: -IV/PO Dexamethasone x 10 days -Out of the therapeutic window for Remdesivir, unlikely to benefit -prophylactic anticoagulation based on d-dimer per hospital protocol -if procalcitonin is low, abx not needed -trend ferritin, d-dimer, CRP every 2-3 days Durga Lim MD, FACP, [facility] O: [phone] F: [phone]
[2021-08-04] MEDS ORDERED: SODIUM CHLORIDE 0.9% 50 ML IVPB IV SCH (21:00)
[2021-08-05] MEDS: methylPREDNISolone Sod Succinate 40 MG/1 ML INJ IV SCH (10:06)
[2021-08-05] MEDS: INSULIN NPH/REGULAR 70/30 INJ SUB-Q SCH (10:06)
[2021-08-05] MEDS: ASPIRIN EC 81 MG TAB PO SCH (10:07)
[2021-08-05] MEDS: amLODIPine 10 MG TAB PO SCH (10:08)
[2021-08-05] MEDS: INSULIN LISPRO 100 UNIT/ML SUB-Q SCH ×4 (10:09→22:57)
[2021-08-05] MEDS: LOSARTAN 50 MG TAB PO SCH (10:09)
[2021-08-05] MEDS: HEPARIN 5,000 UNIT/1 ML VIAL SUB-Q SCH ×2 (10:10→21:46)
[2021-08-05] MEDS: ZINC SULFATE 220 MG CAP PO SCH ×2 (10:17→21:46)
[2021-08-05] MEDS: ASCORBIC ACID 500 MG TAB PO SCH ×2 (10:17→21:45)
[2021-08-05] MEDS: CHOLECALCIFEROL (VIT D3) 1000 UNIT (25 mcg) TAB PO SCH (10:17)
[2021-08-05 10:20] LABS: Alanine Aminotransferase 30 units/L (7-56); Albumin 3.1 g/dL (3.9-5); Blood Urea Nitrogen 21 mg/dL (9-20); Calcium 8.5 mg/dL (8.4-10.2); Hemolysis Index 16
[2021-08-05 10:22] LABS: BUN/Creatinine Ratio 30
[2021-08-05] MEDS: guaiFENesin/CODEINE 100-10MG ORAL LIQD 5 ML PO PRN (11:37)
[2021-08-05] MEDS: AZITHROMYCIN 250 MG TAB PO SCH (13:19)
[2021-08-05] MEDS: cefTRIAXone/NS 2 GM/100 ML 2 GM/100 ML BAG IV SCH (13:48)
--- NOTE | 2021-08-05 14:10 | Progress Note ---
Assessment and Plan Cultures: SARS CoV2 PCR: Indeterminate here, but positive as outpatient 08/03/2021 blood culture: No growth A/P: 65-year-old male with diabetes, hypertension, metabolic syndrome was diagnosed with COVID-19 on 07/11/2021, now with: #Bilateral pneumonia: Secondary to COVID-19. Tested positive as outpatient more than 2 weeks ago. #Acute hypoxic respiratory failure: Secondary to above. Requiring nasal cannula. #Diabetes mellitus, uncontrolled Recs: -continue IV/PO Dexamethasone x 10 days -Out of the therapeutic window for Remdesivir, unlikely to benefit -prophylactic anticoagulation based on d-dimer per hospital protocol -if procalcitonin is low, abx not needed -trend ferritin, d-dimer, CRP every 2-3 days Durga Lim MD, FACP, [facility] O: [phone] F: [phone] Subjective Date of service: 08/05/21 Interval history: No fever. On nasal cannula. Objective - Exam Narrative Exam: Physical Exam (reviewed in chart to minimize risk of transmission) Constitutional: deferred Head, Ears, Nose: deferred Eyes: deferred Neck: deferred Oral: deferred Cardiovascular: deferred Respiratory: deferred GI: deferred Musculoskeletal: deferred Skin: deferred Hem/Lymphatic: deferred Psych: deferred Neurological: deferred - Constitutional Vitals: Vital Signs Temp Pulse Resp BP Pulse Ox 97.7 F 84 18 137/70 92 08/05/21 12:20 08/05/21 12:20 08/05/21 12:20 08/05/21 12:20 08/05/21 12:20 Temperature -Last 24 Hours Temperature 97.7 F Temperature 98.1 F Temperature 97.6 F Temperature 98.3 F - Labs CBC & Chem 7: 08/04/21 04:28 08/05/21 09:01 Labs: Abnormal lab results 08/04/21 08/04/21 08/05/21 Range/Units 15:47 21:53 08:09 BUN (9-20) mg/dL Creatinine (0.8-1.3) mg/dL Glucose (75-100) mg/dL POC Glucose 239 H 247 H 240 H (70-105) mg/dL Albumin (3.9-5) g/dL 08/05/21 08/05/21 Range/Units 09:01 12:17 BUN 21 H (9-20) mg/dL Creatinine 0.7 L (0.8-1.3) mg/dL Glucose 269 H (75-100) mg/dL POC Glucose 275 H (70-105) mg/dL Albumin 3.1 L (3.9-5) g/dL
[2021-08-05] MEDS ORDERED: REMDESIVIR 100 MG in SODIUM CHLORIDE 0.9% 250ML 250 ML IV SCH (21:00)
[2021-08-05] MEDS: PRAVASTATIN 20 MG TAB PO SCH (21:46)
[2021-08-06 07:09] LABS: Alanine Aminotransferase 23 units/L (7-56); Blood Urea Nitrogen 19 mg/dL (9-20); Calcium 8.1 mg/dL (8.4-10.2); Hemolysis Index 4
[2021-08-06 07:11] LABS: BUN/Creatinine Ratio 32
--- NOTE | 2021-08-06 08:48 | Progress Note ---
Assessment and Plan Assessment and plan: #Acute hypoxic respiratory failure #COVID 19 pneumonia -Currently on 5 L nasal cannula, will wean as tolerated -Home O2 evaluation ordered -CT angio of chest negative for PE -Continue Solu-Medrol and COVID vitamins -Remdesivir not started due to patient receiving course at outside hospital -Azithromycin and Rocephin discontinued -Coronavirus PCR 08/04 indeterminate; repeat 08/05 positive -Infectious disease following, assistance appreciated #Elevated D-dimer -D-dimer 1615 -CT findings as above -Likely secondary to COVID infection #Hypertension -will resume home antihypertensive medications #Type 2 diabetes -Continue sliding scale & Humulin 10 units twice daily -Patient takes oral medications at home; will hold while inpatient -Goal glucose 140-180 while inpatient Disposition Plan: Continue medical management History Interval history: Patient oxygen decreased to 5 L/min. Reports improved dyspnea on exertion. No other complaints at this time. Hospitalist Physical - Physical exam Narrative exam: GENERAL: Well-developed well-nourished. In bed in no acute distress. HEENT: Nasal cannula in place 5 L/min CHEST/LUNGS: Coarse breath sounds bilaterally. HEART/CARDIOVASCULAR: RRR. No murmur, rubs or gallops appreciated. ABDOMEN: +BS. NT/ND. SKIN: No rashes noted. NEURO: No focal motor deficit. Follows all commands and is ambulatory. MUSCULOSKELETAL: No joint effusion EXTREMITIES: No cyanosis, clubbing or edema. PSYCH: Cooperative. - Constitutional Vitals: Temp Pulse Resp BP Pulse Ox 98.4 F 78 20 135/68 93 08/06/21 04:55 08/06/21 04:55 08/06/21 04:55 08/06/21 04:55 08/06/21 04:55 General appearance: Present: mild distress HEART Score - HEART Score Troponin: Troponin T < 0.010 ng/mL (0.00-0.029) 08/03/21 11:28 Results - Labs CBC & Chem 7: 08/04/21 04:28 08/06/21 06:19 Labs: Laboratory Last Values WBC 4.6 K/mm3 (4.5-11.0) 08/04/21 04:28 RBC 3.90 M/mm3 (3.65-5.03) 08/04/21 04:28 Hgb 11.3 gm/dl (11.8-15.2) L 08/04/21 04:28 Hct 34.1 % (35.5-45.6) L 08/04/21 04:28 MCV 87 fl (84-94) 08/04/21 04:28 MCH 29 pg (28-32) 08/04/21 04:28 MCHC 33 % (32-34) 08/04/21 04:28 RDW 13.4 % (13.2-15.2) 08/04/21 04:28 Plt Count 205 K/mm3 (140-440) 08/04/21 04:28 Lymph % (Auto) 13.3 % (13.4-35.0) L 08/04/21 04:28 [place] % (Auto) 1.6 % (0.0-7.3) 08/04/21 04:28 Eos % (Auto) 0.0 % (0.0-4.3) 08/04/21 04:28 Baso % (Auto) 0.1 % (0.0-1.8) 08/04/21 04:28 Lymph # (Auto) 0.6 K/mm3 (1.2-5.4) L 08/04/21 04:28 [place] # (Auto) 0.1 K/mm3 (0.0-0.8) 08/04/21 04:28 Eos # (Auto) 0.0 K/mm3 (0.0-0.4) 08/04/21 04:28 Baso # (Auto) 0.0 K/mm3 (0.0-0.1) 08/04/21 04:28 Seg Neutrophils % 85.0 % (40.0-70.0) H 08/04/21 04:28 Seg Neutrophils # 3.9 K/mm3 (1.8-7.7) 08/04/21 04:28 PT 12.9 Sec. (12.2-14.9) 08/03/21 11:28 INR 0.88 (0.87-1.13) 08/03/21 11:28 D-Dimer 1301.58 ng/mlDDU (0-234) H 08/06/21 06:19 Sodium 140 mmol/L (137-145) 08/06/21 06:19 Potassium 4.1 mmol/L (3.6-5.0) 08/06/21 06:19 Chloride 104.7 mmol/L (98-107) 08/06/21 06:19 Carbon Dioxide 26 mmol/L (22-30) 08/06/21 06:19 Anion Gap 13 mmol/L 08/06/21 06:19 BUN 19 mg/dL (9-20) 08/06/21 06:19 Creatinine 0.6 mg/dL (0.8-1.3) L 08/06/21 06:19 Estimated GFR > 60 ml/min 08/06/21 06:19 BUN/Creatinine Ratio 32 % 08/06/21 06:19 Glucose 236 mg/dL (75-100) H 08/06/21 06:19 POC Glucose 309 mg/dL (70-105) H 08/05/21 22:33 Calcium 8.1 mg/dL (8.4-10.2) L 08/06/21 06:19 Magnesium 1.80 mg/dL (1.7-2.3) 08/03/21 11:28 Ferritin 276.3 ng/mL (30.0-300.0) 08/06/21 06:19 Total Bilirubin 0.20 mg/dL (0.1-1.2) 08/06/21 06:19 AST 8 units/L (5-40) 08/06/21 06:19 ALT 23 units/L (7-56) 08/06/21 06:19 Alkaline Phosphatase 48 units/L (35-129) 08/06/21 06:19 Lactate Dehydrogenase 426 units/L (91-180) H 08/03/21 11:28 Troponin T < 0.010 ng/mL (0.00-0.029) 08/03/21 11:28 C-Reactive Protein 1.10 mg/dL (0.00-1.30) 08/06/21 06:19 NT-Pro-B Natriuret Pep 595.3 pg/mL (0-900) 08/03/21 11:28 Total Protein 5.8 g/dL (6.3-8.2) L 08/06/21 06:19 Albumin 3.0 g/dL (3.9-5) L 08/06/21 06:19 Albumin/Globulin Ratio 1.1 % 08/06/21 06:19 Urine Color Yellow (Yellow) 08/04/21 14:45 Urine Turbidity Hazy (Clear) 08/04/21 14:45 Urine pH 5.0 (5.0-7.0) 08/04/21 14:45 Ur Specific [place] 1.028 (1.003-1.030) 08/04/21 14:45 Urine Protein 30 mg/dl mg/dL (Negative) 08/04/21 14:45 Urine Glucose (UA) >=500 mg/dL (Negative) 08/04/21 14:45 Urine Ketones 80 mg/dL (Negative) 08/04/21 14:45 Urine Blood Neg (Negative) 08/04/21 14:45 Urine Nitrite Neg (Negative) 08/04/21 14:45 Urine Bilirubin Neg (Negative) 08/04/21 14:45 Urine Urobilinogen < 2.0 mg/dL (<2.0) 08/04/21 14:45 Ur Leukocyte Esterase Neg (Negative) 08/04/21 14:45 Urine WBC (Auto) 1.0 /HPF (0.0-6.0) 08/04/21 14:45 Urine RBC (Auto) 2.0 /HPF (0.0-6.0) 08/04/21 14:45 Urine Mucus Few /HPF 08/04/21 14:45 Coronavirus (PCR) Positive (Negative) A 08/05/21 08:33 Microbiology: Microbiology 08/03/21 11:28 Peripheral/Venous Blood Culture - Preliminary NO GROWTH AFTER 48 HOURS 08/03/21 11:28 Peripheral/Venous Blood Culture - Preliminary NO GROWTH AFTER 48 HOURS Berry/IV: Voiding Method Toilet Active Medications - Current Medications Current Medications: Generic Name Dose Route Start Last Admin Trade Name Freq PRN Reason Stop Dose Admin Acetaminophen 650 mg 08/03/21 13:22 Acetaminophen 325 Mg Tab PO Q4H PRN Pain MILD(1-3)/Fever >100.5/MASSEY Albuterol 2.5 mg 08/03/21 13:22 Albuterol 2.5 Mg/3 Ml Nebu IH Q4HRT PRN Shortness Of Breath Amlodipine Besylate 10 mg 08/05/21 10:00 08/05/21 10:08 Amlodipine 10 Mg Tab PO 10 mg DAILY SHENG Administration Ascorbic Acid 500 mg 08/03/21 22:00 08/05/21 21:45 Ascorbic Acid 500 Mg Tab PO 500 mg BID SHENG Administration Aspirin 81 mg 08/05/21 10:00 08/05/21 10:07 Aspirin Ec 81 Mg Tab PO 81 mg QDAY SHENG Administration Azithromycin 500 mg 08/04/21 14:00 08/05/21 13:19 Azithromycin 250 Mg Tab PO 08/07/21 14:01 500 mg Q24H SHENG Administration Cholecalciferol 1,000 unit 08/04/21 11:00 08/05/21 10:17 Cholecalciferol (Vit D3) 1000 Unit (25 Mcg) Tab PO 1,000 unit DAILY SHENG Administration Dextrose 50 ml 08/04/21 08:16 Dextrose 50% In Water (25gm) 50 Ml Syringe IV Q30MIN PRN Hypoglycemia Protocol Heparin Sodium (Porcine) 5,000 unit 08/03/21 22:00 08/05/21 21:46 Heparin 5,000 Unit/1 Ml Vial SUB-Q 5,000 unit Q12HR SHENG Administration Hydromorphone HCl 0.5 mg 08/03/21 13:22 Hydromorphone 1 Mg/1 Ml Inj IV Q23H PRN Pain , Severe (7-10) Ceftriaxone Sodium 2 gm in 100 mls @ 200 mls/hr 08/03/21 14:00 08/05/21 13:48 Rocephin/Ns 2 Gm/100 Ml IV 200 mls/hr Q24H SHENG Administration Protocol Insulin Human Isoph/Insulin Regular 10 unit 08/05/21 09:00 08/05/21 10:06 Insulin Nph/Regular 70/30 Inj SUB-Q 10 unit QDDIAB SHENG Administration Insulin Human Lispro 0 unit 08/04/21 09:00 08/05/21 22:57 Insulin Lispro 100 Unit/Ml SUB-Q 6 unit ACHS SHENG Administration Protocol Losartan Potassium 100 mg 08/05/21 10:00 08/05/21 10:09 Losartan 50 Mg Tab PO 100 mg QDAY SHENG Administration Methylprednisolone Sodium Succinate 40 mg 08/04/21 10:00 08/05/21 10:06 Methylprednisolone Sod Succinate 40 Mg/1 Ml Inj IV 40 mg QDAY SHENG Administration Ondansetron HCl 4 mg 08/03/21 13:22 Ondansetron 4 Mg/2 Ml Inj IV Q8H PRN Nausea And Vomiting Oxycodone/Acetaminophen 1 tab 08/03/21 13:22 Oxycodone /Acetaminophen 5-325mg Tab PO Q16H PRN Pain, Moderate (4-6) Pravastatin Sodium 10 mg 08/05/21 22:00 08/05/21 21:46 Pravastatin 20 Mg Tab PO 10 mg QHS SHENG Administration Pseudoephedrine/Acetam/Chlorphenir 10 ml 08/03/21 22:40 08/05/21 11:37 Guaifenesin/Codeine 100-10mg Oral Liqd 5 Ml PO 10 ml Q6H PRN Administration Cough Sodium Chloride 10 ml 08/03/21 22:00 08/05/21 22:59 Sodium Chloride 0.9% 10 Ml Flush Syringe IV 10 ml BID SHENG Administration Sodium Chloride 10 ml 08/03/21 13:22 Sodium Chloride 0.9% 10 Ml Flush Syringe IV PRN PRN LINE FLUSH Zinc Sulfate 220 mg 08/03/21 22:00 08/05/21 21:46 Zinc Sulfate 220 Mg Cap PO 220 mg BID SHENG Administration Nutrition/Malnutrition Assess - Dietary Evaluation Nutrition/Malnutrition Findings: Nutrition Notes Start: 08/04/21 19:03 Freq: Status: Active Protocol: Document 08/04/21 19:03 JODI (Rec: 08/04/21 19:13 JODI [id number]) Nutrition Notes 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 Current Diet Cardiac Diet (since D 08/03). 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 Weight Status Overweight Subjective/Other Information RD consult for skin risk assessment. Pt's PO intake of meals has been Good (75%), according to ADL notes. Pt shows no signs of concern for skin risk at the time, according to Physical Assessment History notes. Percent of energy/protein needs met: Prescribed Cardiac Diet provides for energy/protein needs (2,230 Kcal/85 g) during LOS. GI Symptoms None Food Allergy No Skin Integrity/Comment Clear, warm, dry. Current % PO Good (75-100%) Minimum of two criteria No Nutrition Intervention Follow-Up By: 08/11/21 Additional Comments Continue monitoring food tolerance, %PO intake of meals , and BM.
--- NOTE | 2021-08-06 08:48 | Progress Note ---
Assessment and Plan Assessment and plan: #Acute hypoxic respiratory failure #COVID 19 pneumonia -Currently on 8 L nasal cannula, will wean as tolerated -Will likely need home oxygen evaluation when closer to 5 L -CT angio of chest negative for PE -Continue Solu-Medrol and COVID vitamins -Continue azithromycin and Rocephin for CAP coverage -Coronavirus PCR 08/04 indeterminate; repeat ordered -Infectious disease following, assistance appreciated #Elevated D-dimer -D-dimer 1615 -CT findings as above -Likely secondary to COVID infection #Hypertension -will resume home antihypertensive medications #Type 2 diabetes -Continue sliding scale; Humulin 10 units twice daily started -Patient takes oral medications at home; will hold while inpatient -Goal glucose 140-180 while inpatient Disposition Plan: Continue medical management History Interval history: Patient reports dyspnea on exertion. Currently on 7 L nasal cannula. Denies chest pain or discomfort. Hospitalist Physical - Physical exam Narrative exam: GENERAL: Well-developed well-nourished. In bed in no acute distress. HEENT: Nasal cannula in place 7 L/min CHEST/LUNGS: Coarse breath sounds bilaterally. HEART/CARDIOVASCULAR: RRR. No murmur, rubs or gallops appreciated. ABDOMEN: +BS. NT/ND. SKIN: No rashes noted. NEURO: No focal motor deficit. Follows all commands and is ambulatory. MUSCULOSKELETAL: No joint effusion EXTREMITIES: No cyanosis, clubbing or edema. PSYCH: Cooperative. - Constitutional Vitals: Temp Pulse Resp BP Pulse Ox 98.4 F 78 20 135/68 93 08/06/21 04:55 08/06/21 04:55 08/06/21 04:55 08/06/21 04:55 08/06/21 04:55 General appearance: Present: mild distress HEART Score - HEART Score Troponin: Troponin T < 0.010 ng/mL (0.00-0.029) 08/03/21 11:28 Results - Labs CBC & Chem 7: 08/04/21 04:28 08/06/21 06:19 Labs: Laboratory Last Values WBC 4.6 K/mm3 (4.5-11.0) 08/04/21 04:28 RBC 3.90 M/mm3 (3.65-5.03) 08/04/21 04:28 Hgb 11.3 gm/dl (11.8-15.2) L 08/04/21 04:28 Hct 34.1 % (35.5-45.6) L 08/04/21 04:28 MCV 87 fl (84-94) 08/04/21 04:28 MCH 29 pg (28-32) 08/04/21 04:28 MCHC 33 % (32-34) 08/04/21 04:28 RDW 13.4 % (13.2-15.2) 08/04/21 04:28 Plt Count 205 K/mm3 (140-440) 08/04/21 04:28 Lymph % (Auto) 13.3 % (13.4-35.0) L 08/04/21 04:28 [place] % (Auto) 1.6 % (0.0-7.3) 08/04/21 04:28 Eos % (Auto) 0.0 % (0.0-4.3) 08/04/21 04:28 Baso % (Auto) 0.1 % (0.0-1.8) 08/04/21 04:28 Lymph # (Auto) 0.6 K/mm3 (1.2-5.4) L 08/04/21 04:28 [place] # (Auto) 0.1 K/mm3 (0.0-0.8) 08/04/21 04:28 Eos # (Auto) 0.0 K/mm3 (0.0-0.4) 08/04/21 04:28 Baso # (Auto) 0.0 K/mm3 (0.0-0.1) 08/04/21 04:28 Seg Neutrophils % 85.0 % (40.0-70.0) H 08/04/21 04:28 Seg Neutrophils # 3.9 K/mm3 (1.8-7.7) 08/04/21 04:28 PT 12.9 Sec. (12.2-14.9) 08/03/21 11:28 INR 0.88 (0.87-1.13) 08/03/21 11:28 D-Dimer 1301.58 ng/mlDDU (0-234) H 08/06/21 06:19 Sodium 140 mmol/L (137-145) 08/06/21 06:19 Potassium 4.1 mmol/L (3.6-5.0) 08/06/21 06:19 Chloride 104.7 mmol/L (98-107) 08/06/21 06:19 Carbon Dioxide 26 mmol/L (22-30) 08/06/21 06:19 Anion Gap 13 mmol/L 08/06/21 06:19 BUN 19 mg/dL (9-20) 08/06/21 06:19 Creatinine 0.6 mg/dL (0.8-1.3) L 08/06/21 06:19 Estimated GFR > 60 ml/min 08/06/21 06:19 BUN/Creatinine Ratio 32 % 08/06/21 06:19 Glucose 236 mg/dL (75-100) H 08/06/21 06:19 POC Glucose 309 mg/dL (70-105) H 08/05/21 22:33 Calcium 8.1 mg/dL (8.4-10.2) L 08/06/21 06:19 Magnesium 1.80 mg/dL (1.7-2.3) 08/03/21 11:28 Ferritin 276.3 ng/mL (30.0-300.0) 08/06/21 06:19 Total Bilirubin 0.20 mg/dL (0.1-1.2) 08/06/21 06:19 AST 8 units/L (5-40) 08/06/21 06:19 ALT 23 units/L (7-56) 08/06/21 06:19 Alkaline Phosphatase 48 units/L (35-129) 08/06/21 06:19 Lactate Dehydrogenase 426 units/L (91-180) H 08/03/21 11:28 Troponin T < 0.010 ng/mL (0.00-0.029) 08/03/21 11:28 C-Reactive Protein 1.10 mg/dL (0.00-1.30) 08/06/21 06:19 NT-Pro-B Natriuret Pep 595.3 pg/mL (0-900) 08/03/21 11:28 Total Protein 5.8 g/dL (6.3-8.2) L 08/06/21 06:19 Albumin 3.0 g/dL (3.9-5) L 08/06/21 06:19 Albumin/Globulin Ratio 1.1 % 08/06/21 06:19 Urine Color Yellow (Yellow) 08/04/21 14:45 Urine Turbidity Hazy (Clear) 08/04/21 14:45 Urine pH 5.0 (5.0-7.0) 08/04/21 14:45 Ur Specific [place] 1.028 (1.003-1.030) 08/04/21 14:45 Urine Protein 30 mg/dl mg/dL (Negative) 08/04/21 14:45 Urine Glucose (UA) >=500 mg/dL (Negative) 08/04/21 14:45 Urine Ketones 80 mg/dL (Negative) 08/04/21 14:45 Urine Blood Neg (Negative) 08/04/21 14:45 Urine Nitrite Neg (Negative) 08/04/21 14:45 Urine Bilirubin Neg (Negative) 08/04/21 14:45 Urine Urobilinogen < 2.0 mg/dL (<2.0) 08/04/21 14:45 Ur Leukocyte Esterase Neg (Negative) 08/04/21 14:45 Urine WBC (Auto) 1.0 /HPF (0.0-6.0) 08/04/21 14:45 Urine RBC (Auto) 2.0 /HPF (0.0-6.0) 08/04/21 14:45 Urine Mucus Few /HPF 08/04/21 14:45 Coronavirus (PCR) Positive (Negative) A 08/05/21 08:33 Microbiology: Microbiology 08/03/21 11:28 Peripheral/Venous Blood Culture - Preliminary NO GROWTH AFTER 48 HOURS 08/03/21 11:28 Peripheral/Venous Blood Culture - Preliminary NO GROWTH AFTER 48 HOURS Berry/IV: Voiding Method Toilet Active Medications - Current Medications Current Medications: Generic Name Dose Route Start Last Admin Trade Name Freq PRN Reason Stop Dose Admin Acetaminophen 650 mg 08/03/21 13:22 Acetaminophen 325 Mg Tab PO Q4H PRN Pain MILD(1-3)/Fever >100.5/MASSEY Albuterol 2.5 mg 08/03/21 13:22 Albuterol 2.5 Mg/3 Ml Nebu IH Q4HRT PRN Shortness Of Breath Amlodipine Besylate 10 mg 08/05/21 10:00 08/05/21 10:08 Amlodipine 10 Mg Tab PO 10 mg DAILY SHENG Administration Ascorbic Acid 500 mg 08/03/21 22:00 08/05/21 21:45 Ascorbic Acid 500 Mg Tab PO 500 mg BID SHENG Administration Aspirin 81 mg 08/05/21 10:00 08/05/21 10:07 Aspirin Ec 81 Mg Tab PO 81 mg QDAY SHENG Administration Azithromycin 500 mg 08/04/21 14:00 08/05/21 13:19 Azithromycin 250 Mg Tab PO 08/07/21 14:01 500 mg Q24H SHENG Administration Cholecalciferol 1,000 unit 08/04/21 11:00 08/05/21 10:17 Cholecalciferol (Vit D3) 1000 Unit (25 Mcg) Tab PO 1,000 unit DAILY SHENG Administration Dextrose 50 ml 08/04/21 08:16 Dextrose 50% In Water (25gm) 50 Ml Syringe IV Q30MIN PRN Hypoglycemia Protocol Heparin Sodium (Porcine) 5,000 unit 08/03/21 22:00 08/05/21 21:46 Heparin 5,000 Unit/1 Ml Vial SUB-Q 5,000 unit Q12HR SHENG Administration Hydromorphone HCl 0.5 mg 08/03/21 13:22 Hydromorphone 1 Mg/1 Ml Inj IV Q23H PRN Pain , Severe (7-10) Ceftriaxone Sodium 2 gm in 100 mls @ 200 mls/hr 08/03/21 14:00 08/05/21 13:48 Rocephin/Ns 2 Gm/100 Ml IV 200 mls/hr Q24H SHENG Administration Protocol Insulin Human Isoph/Insulin Regular 10 unit 08/05/21 09:00 08/05/21 10:06 Insulin Nph/Regular 70/30 Inj SUB-Q 10 unit QDDIAB SHENG Administration Insulin Human Lispro 0 unit 08/04/21 09:00 08/05/21 22:57 Insulin Lispro 100 Unit/Ml SUB-Q 6 unit ACHS SHENG Administration Protocol Losartan Potassium 100 mg 08/05/21 10:00 08/05/21 10:09 Losartan 50 Mg Tab PO 100 mg QDAY SHENG Administration Methylprednisolone Sodium Succinate 40 mg 08/04/21 10:00 08/05/21 10:06 Methylprednisolone Sod Succinate 40 Mg/1 Ml Inj IV 40 mg QDAY SHENG Administration Ondansetron HCl 4 mg 08/03/21 13:22 Ondansetron 4 Mg/2 Ml Inj IV Q8H PRN Nausea And Vomiting Oxycodone/Acetaminophen 1 tab 08/03/21 13:22 Oxycodone /Acetaminophen 5-325mg Tab PO Q16H PRN Pain, Moderate (4-6) Pravastatin Sodium 10 mg 08/05/21 22:00 08/05/21 21:46 Pravastatin 20 Mg Tab PO 10 mg QHS SHENG Administration Pseudoephedrine/Acetam/Chlorphenir 10 ml 08/03/21 22:40 08/05/21 11:37 Guaifenesin/Codeine 100-10mg Oral Liqd 5 Ml PO 10 ml Q6H PRN Administration Cough Sodium Chloride 10 ml 08/03/21 22:00 08/05/21 22:59 Sodium Chloride 0.9% 10 Ml Flush Syringe IV 10 ml BID SHENG Administration Sodium Chloride 10 ml 08/03/21 13:22 Sodium Chloride 0.9% 10 Ml Flush Syringe IV PRN PRN LINE FLUSH Zinc Sulfate 220 mg 08/03/21 22:00 08/05/21 21:46 Zinc Sulfate 220 Mg Cap PO 220 mg BID SHENG Administration Nutrition/Malnutrition Assess - Dietary Evaluation Nutrition/Malnutrition Findings: Nutrition Notes Start: 08/04/21 19:03 Freq: Status: Active Protocol: Document 08/04/21 19:03 JODI (Rec: 08/04/21 19:13 JODI [email or web address]) Nutrition Notes Need for Assessment generated from: neuro ophthalmologist Initial or Follow up Brief Note Current Diagnosis Diabetes,Hypertension, Respiratory Failure Other Pertinent Diagnosis COVID-19 pui, Pneumonia, Metabolic Syndrome. Current Diet Cardiac Diet (since D 08/03). Height 5 ft 10 in Weight 90.718 kg [place] Body Weight (kg) 75.45 BMI 28.7 Intake Prior to Admission Good Weight change and time frame Pt states not having loss body weight [employer]. Weight Status Overweight Subjective/Other Information RD consult for skin risk assessment. Pt's PO intake of meals has been Good (75%), according to ADL notes. Pt shows no signs of concern for skin risk at the time, according to Physical Assessment History notes. Percent of energy/protein needs met: Prescribed Cardiac Diet provides for energy/protein needs (2,230 Kcal/85 g) during LOS. GI Symptoms None Food Allergy No Skin Integrity/Comment Clear, warm, dry. Current % PO Good (75-100%) Minimum of two criteria No Nutrition Intervention Follow-Up By: 08/11/21 Additional Comments Continue monitoring food tolerance, %PO intake of meals , and BM.
[2021-08-06] MEDS: INSULIN NPH/REGULAR 70/30 INJ SUB-Q SCH (10:20)
[2021-08-06] MEDS: INSULIN LISPRO 100 UNIT/ML SUB-Q SCH ×4 (10:21→23:15)
[2021-08-06] MEDS: ASPIRIN EC 81 MG TAB PO SCH (10:22)
[2021-08-06] MEDS: LOSARTAN 50 MG TAB PO SCH (10:22)
[2021-08-06] MEDS: methylPREDNISolone Sod Succinate 40 MG/1 ML INJ IV SCH (10:22)
[2021-08-06] MEDS: ASCORBIC ACID 500 MG TAB PO SCH ×2 (10:22→23:02)
[2021-08-06] MEDS: ZINC SULFATE 220 MG CAP PO SCH ×2 (10:23→23:02)
[2021-08-06] MEDS: HEPARIN 5,000 UNIT/1 ML VIAL SUB-Q SCH ×2 (10:23→23:03)
[2021-08-06] MEDS: CHOLECALCIFEROL (VIT D3) 1000 UNIT (25 mcg) TAB PO SCH (10:23)
[2021-08-06] MEDS: amLODIPine 10 MG TAB PO SCH (10:24)
[2021-08-06] MEDS: cefTRIAXone/NS 2 GM/100 ML 2 GM/100 ML BAG IV SCH (14:51)
[2021-08-06] MEDS: AZITHROMYCIN 250 MG TAB PO SCH (14:51)
--- NOTE | 2021-08-06 15:22 | Progress Note ---
Assessment and Plan Cultures: SARS CoV2 PCR: Indeterminate here, but positive as outpatient 08/03/2021 blood culture: No growth A/P: 65-year-old male with diabetes, hypertension, metabolic syndrome was diagnosed with COVID-19 on 07/11/2021, now with: #Bilateral pneumonia: Secondary to COVID-19. Tested positive as outpatient more than 2 weeks ago. #Acute hypoxic respiratory failure: Secondary to above. Requiring nasal cannula. #Diabetes mellitus, uncontrolled Recs: -continue IV/PO Dexamethasone x 10 days -Procalcitonin pending. CRP improved to 1.1. -Out of the therapeutic window for Remdesivir, unlikely to benefit -prophylactic anticoagulation based on d-dimer per hospital protocol -if procalcitonin is low, abx not needed -trend ferritin, d-dimer, CRP every 2-3 days Durga Lim MD, FACP, [facility] O: [phone] F: [phone] Subjective Date of service: 08/06/21 Interval history: No fever. Remains on oxygen. Procalcitonin pending. CRP improved to 1.1. Objective - Exam Narrative Exam: Physical Exam (reviewed in chart to minimize risk of transmission) Constitutional: deferred Head, Ears, Nose: deferred Eyes: deferred Neck: deferred Oral: deferred Cardiovascular: deferred Respiratory: deferred GI: deferred Musculoskeletal: deferred Skin: deferred Hem/Lymphatic: deferred Psych: deferred Neurological: deferred - Constitutional Vitals: Vital Signs Temp Pulse Resp BP Pulse Ox 98.4 F 84 20 135/69 96 08/06/21 04:55 08/06/21 10:24 08/06/21 13:00 08/06/21 10:24 08/06/21 13:00 Temperature -Last 24 Hours Temperature 98.4 F Temperature 98.1 F Temperature 97.8 F - Labs CBC & Chem 7: 08/04/21 04:28 08/06/21 06:19 Labs: Abnormal lab results 08/05/21 08/05/21 08/05/21 Range/Units 08:33 16:21 22:33 D-Dimer (0-234) ng/mlDDU Creatinine (0.8-1.3) mg/dL Glucose (75-100) mg/dL POC Glucose 273 H 309 H (70-105) mg/dL Calcium (8.4-10.2) mg/dL Total Protein (6.3-8.2) g/dL Albumin (3.9-5) g/dL Coronavirus (PCR) Positive A (Negative) 08/06/21 08/06/21 08/06/21 Range/Units 06:19 06:19 08:47 D-Dimer 1301.58 H (0-234) ng/mlDDU Creatinine 0.6 L (0.8-1.3) mg/dL Glucose 236 H (75-100) mg/dL POC Glucose 195 H (70-105) mg/dL Calcium 8.1 L (8.4-10.2) mg/dL Total Protein 5.8 L (6.3-8.2) g/dL Albumin 3.0 L (3.9-5) g/dL Coronavirus (PCR) (Negative)
[2021-08-06] MEDS: PRAVASTATIN 20 MG TAB PO SCH (23:01)
[2021-08-07 06:22] LABS: Alanine Aminotransferase 18 units/L (7-56); Albumin 3.1 g/dL (3.9-5); Blood Urea Nitrogen 16 mg/dL (9-20); Calcium 8.5 mg/dL (8.4-10.2); Hemolysis Index 3
[2021-08-07 06:23] LABS: BUN/Creatinine Ratio 27
[2021-08-07] MEDS ORDERED: DEXTROSE 10% *Hypoglycemia IV PRN (09:31)
[2021-08-07] MEDS: ASCORBIC ACID 500 MG TAB PO SCH ×2 (10:08→22:56)
[2021-08-07] MEDS: ZINC SULFATE 220 MG CAP PO SCH ×2 (10:08→22:56)
[2021-08-07] MEDS: LOSARTAN 50 MG TAB PO SCH (10:08)
[2021-08-07] MEDS: CHOLECALCIFEROL (VIT D3) 1000 UNIT (25 mcg) TAB PO SCH (10:08)
[2021-08-07] MEDS: methylPREDNISolone Sod Succinate 40 MG/1 ML INJ IV SCH (10:08)
[2021-08-07] MEDS: ASPIRIN EC 81 MG TAB PO SCH (10:08)
[2021-08-07] MEDS: amLODIPine 10 MG TAB PO SCH (10:10)
[2021-08-07] MEDS: HEPARIN 5,000 UNIT/1 ML VIAL SUB-Q SCH ×2 (10:12→22:55)
[2021-08-07] MEDS: INSULIN NPH/REGULAR 70/30 INJ SUB-Q SCH (10:13)
[2021-08-07] MEDS: INSULIN LISPRO 100 UNIT/ML SUB-Q SCH ×4 (10:14→23:23)
[2021-08-07] MEDS: guaiFENesin/CODEINE 100-10MG ORAL LIQD 5 ML PO PRN (10:15)
--- NOTE | 2021-08-07 10:37 | Discharge Summary ---
Providers - Providers Date of Admission: 08/03/21 13:22 Attending physician: ALIZE DUNLAP MD 08/04/21 08:56 Consult to Physician [CONS] Routine Comment: Consulting Provider: GARRICK CARRASCO Physician Instructions: Reason For Exam: COVID PNA Primary care physician: JT LYN MD Hospitalization Condition: Fair Disposition: 30 STILL A PATIENT Exam - Constitutional Vitals: Temp Pulse Resp BP Pulse Ox 97.6 F 83 17 146/69 96 08/06/21 14:15 08/07/21 10:08 08/07/21 09:36 08/07/21 10:08 08/07/21 09:36 Plan Care Plan Goals: Resume taking your home diabetes medications. Take steroids until completed. Follow-up with your primary care appointment on Tuesday. Take all your medications with you. Your most recent COVID test was positive 08/05/21. Continue to wear your mask when you are in the presence of people who do not live in your household. Follow up with: PRIMARY CAREMD [Primary Care Provider] - 3-5 Days Prescriptions: predniSONE 10 mg PO .TAPER 6 Days #21 tab Ascorbic Acid [Vitamin C] 500 mg PO BID 6 Days #12 tablet Cholecalciferol Vit D3 [Vitamin D3 1,000 UNIT TAB] 1,000 unit PO DAILY 6 Days #6 tablet Zinc Sulfate 220 mg PO BID 6 Days #12 capsule
--- NOTE | 2021-08-07 12:42 | Progress Note ---
Assessment and Plan Cultures: SARS CoV2 PCR: Indeterminate here, then positive, was also positive as outpatient 08/03/2021 blood culture: No growth A/P: 65-year-old male with diabetes, hypertension, metabolic syndrome was diagnosed with COVID-19 on 07/11/2021, now with: #Bilateral pneumonia: Secondary to COVID-19. Tested positive as outpatient more than 2 weeks ago. #Acute hypoxic respiratory failure: Secondary to above. Requiring nasal cannula. #Diabetes mellitus, uncontrolled Recs: -procalcitonin is low, abx not needed -continue IV/PO Dexamethasone x 10 days -Out of the therapeutic window for Remdesivir, unlikely to benefit -prophylactic anticoagulation based on d-dimer per hospital protocol Durga Lim MD, FACP, [facility] ([facility] O: [phone] F: [phone] Subjective Date of service: 08/07/21 Interval history: No fever. Remains on oxygen. Procalcitonin low. CRP improved to 1.1. Objective - Exam Narrative Exam: Physical Exam (reviewed in chart to minimize risk of transmission) Constitutional: deferred Head, Ears, Nose: deferred Eyes: deferred Neck: deferred Oral: deferred Cardiovascular: deferred Respiratory: deferred GI: deferred Musculoskeletal: deferred Skin: deferred Hem/Lymphatic: deferred Psych: deferred Neurological: deferred - Constitutional Vitals: Vital Signs Temp Pulse Resp BP Pulse Ox 98 F 91 H 20 149/78 87 08/07/21 10:49 08/07/21 10:49 08/07/21 10:49 08/07/21 10:49 08/07/21 11:13 Temperature -Last 24 Hours Temperature 98 F Temperature 98.0 F Temperature 98.1 F Temperature 98.5 F Temperature 97.6 F - Labs CBC & Chem 7: 08/04/21 04:28 08/07/21 04:46 Labs: Abnormal lab results 08/06/21 08/06/21 08/06/21 Range/Units 14:20 17:46 21:23 Creatinine (0.8-1.3) mg/dL Glucose (75-100) mg/dL POC Glucose 238 H 341 H 294 H (70-105) mg/dL Total Protein (6.3-8.2) g/dL Albumin (3.9-5) g/dL 08/07/21 08/07/21 Range/Units 04:46 07:18 Creatinine 0.6 L (0.8-1.3) mg/dL Glucose 223 H (75-100) mg/dL POC Glucose 196 H (70-105) mg/dL Total Protein 5.9 L (6.3-8.2) g/dL Albumin 3.1 L (3.9-5) g/dL
[2021-08-07 16:25] VITALS: BP 137/74
[2021-08-07] MEDS: PRAVASTATIN 20 MG TAB PO SCH (22:56)
[2021-08-08] MEDS: INSULIN NPH/REGULAR 70/30 INJ SUB-Q SCH (09:26)
[2021-08-08] MEDS: ASPIRIN EC 81 MG TAB PO SCH (09:27)
[2021-08-08] MEDS: CHOLECALCIFEROL (VIT D3) 1000 UNIT (25 mcg) TAB PO SCH (09:27)
[2021-08-08] MEDS: methylPREDNISolone Sod Succinate 40 MG/1 ML INJ IV SCH (09:27)
[2021-08-08] MEDS: amLODIPine 10 MG TAB PO SCH (09:27)
[2021-08-08] MEDS: ASCORBIC ACID 500 MG TAB PO SCH (09:27)
[2021-08-08] MEDS: ZINC SULFATE 220 MG CAP PO SCH (09:27)
[2021-08-08] MEDS: HEPARIN 5,000 UNIT/1 ML VIAL SUB-Q SCH (09:28)
[2021-08-08] MEDS: INSULIN LISPRO 100 UNIT/ML SUB-Q SCH ×2 (09:34→13:12)
[2021-08-08] MEDS: LOSARTAN 50 MG TAB PO SCH (09:34)
--- NOTE | 2021-08-08 13:32 | Progress Note ---
Assessment and Plan Assessment and plan: #Acute hypoxic respiratory failure #COVID 19 pneumonia -Currently on 4 L nasal cannula, will wean as tolerated -Home O2 evaluation ordered; patient qualifies for home O2 -discharge pending home O2 set up -CT angio of chest negative for PE -Continue Solu-Medrol and COVID vitamins -Remdesivir not started due to patient receiving course at outside hospital -s/p Azithromycin and Rocephin -Coronavirus PCR 08/04 indeterminate; repeat 08/05 positive -Infectious disease following, assistance appreciated #Elevated D-dimer -D-dimer 1615 -CT findings as above -Likely secondary to COVID infection #Hypertension -continue home antihypertensive medications #Type 2 diabetes -Continue sliding scale & Humulin 10 units twice daily -Patient takes oral medications at home; will hold while inpatient -Goal glucose 140-180 while inpatient Disposition Plan: pending home O2 set up History Interval history: Patient oxygen decreased to 4 L/min. Reports improved dyspnea on exertion. No other complaints at this time. Hospitalist Physical - Physical exam Narrative exam: GENERAL: Well-developed well-nourished. In bed in no acute distress. HEENT: Nasal cannula in place 4 L/min CHEST/LUNGS: Coarse breath sounds bilaterally. HEART/CARDIOVASCULAR: RRR. No murmur, rubs or gallops appreciated. ABDOMEN: +BS. NT/ND. SKIN: No rashes noted. NEURO: No focal motor deficit. Follows all commands and is ambulatory. MUSCULOSKELETAL: No joint effusion EXTREMITIES: No cyanosis, clubbing or edema. PSYCH: Cooperative. - Constitutional Vitals: Temp Pulse Resp BP Pulse Ox 98.9 F 85 17 137/74 95 08/07/21 16:08 08/08/21 09:34 08/08/21 01:00 08/07/21 16:08 08/08/21 11:38 General appearance: Present: mild distress HEART Score - HEART Score Troponin: Troponin T < 0.010 ng/mL (0.00-0.029) 08/03/21 11:28 Results - Labs CBC & Chem 7: 08/04/21 04:28 08/07/21 04:46 Labs: Laboratory Last Values WBC 4.6 K/mm3 (4.5-11.0) 08/04/21 04:28 RBC 3.90 M/mm3 (3.65-5.03) 08/04/21 04:28 Hgb 11.3 gm/dl (11.8-15.2) L 08/04/21 04:28 Hct 34.1 % (35.5-45.6) L 08/04/21 04:28 MCV 87 fl (84-94) 08/04/21 04:28 MCH 29 pg (28-32) 08/04/21 04:28 MCHC 33 % (32-34) 08/04/21 04:28 RDW 13.4 % (13.2-15.2) 08/04/21 04:28 Plt Count 205 K/mm3 (140-440) 08/04/21 04:28 Lymph % (Auto) 13.3 % (13.4-35.0) L 08/04/21 04:28 [place] % (Auto) 1.6 % (0.0-7.3) 08/04/21 04:28 Eos % (Auto) 0.0 % (0.0-4.3) 08/04/21 04:28 Baso % (Auto) 0.1 % (0.0-1.8) 08/04/21 04:28 Lymph # (Auto) 0.6 K/mm3 (1.2-5.4) L 08/04/21 04:28 [place] # (Auto) 0.1 K/mm3 (0.0-0.8) 08/04/21 04:28 Eos # (Auto) 0.0 K/mm3 (0.0-0.4) 08/04/21 04:28 Baso # (Auto) 0.0 K/mm3 (0.0-0.1) 08/04/21 04:28 Seg Neutrophils % 85.0 % (40.0-70.0) H 08/04/21 04:28 Seg Neutrophils # 3.9 K/mm3 (1.8-7.7) 08/04/21 04:28 PT 12.9 Sec. (12.2-14.9) 08/03/21 11:28 INR 0.88 (0.87-1.13) 08/03/21 11:28 D-Dimer 1301.58 ng/mlDDU (0-234) H 08/06/21 06:19 Sodium 139 mmol/L (137-145) 08/07/21 04:46 Potassium 4.1 mmol/L (3.6-5.0) 08/07/21 04:46 Chloride 103.6 mmol/L (98-107) 08/07/21 04:46 Carbon Dioxide 27 mmol/L (22-30) 08/07/21 04:46 Anion Gap 13 mmol/L 08/07/21 04:46 BUN 16 mg/dL (9-20) 08/07/21 04:46 Creatinine 0.6 mg/dL (0.8-1.3) L 08/07/21 04:46 Estimated GFR > 60 ml/min 08/07/21 04:46 BUN/Creatinine Ratio 27 % 08/07/21 04:46 Glucose 223 mg/dL (75-100) H 08/07/21 04:46 POC Glucose 255 mg/dL (70-105) H 08/08/21 12:06 Calcium 8.5 mg/dL (8.4-10.2) 08/07/21 04:46 Magnesium 1.80 mg/dL (1.7-2.3) 08/03/21 11:28 Ferritin 276.3 ng/mL (30.0-300.0) 08/06/21 06:19 Total Bilirubin 0.20 mg/dL (0.1-1.2) 08/07/21 04:46 AST 8 units/L (5-40) 08/07/21 04:46 ALT 18 units/L (7-56) 08/07/21 04:46 Alkaline Phosphatase 53 units/L (35-129) 08/07/21 04:46 Lactate Dehydrogenase 426 units/L (91-180) H 08/03/21 11:28 Troponin T < 0.010 ng/mL (0.00-0.029) 08/03/21 11:28 C-Reactive Protein 1.10 mg/dL (0.00-1.30) 08/06/21 06:19 NT-Pro-B Natriuret Pep 595.3 pg/mL (0-900) 08/03/21 11:28 Total Protein 5.9 g/dL (6.3-8.2) L 08/07/21 04:46 Albumin 3.1 g/dL (3.9-5) L 08/07/21 04:46 Albumin/Globulin Ratio 1.1 % 08/07/21 04:46 Procalcitonin < 0.05 ng/mL (<0.15) 08/06/21 06:19 Urine Color Yellow (Yellow) 08/04/21 14:45 Urine Turbidity Hazy (Clear) 08/04/21 14:45 Urine pH 5.0 (5.0-7.0) 08/04/21 14:45 Ur Specific [place] 1.028 (1.003-1.030) 08/04/21 14:45 Urine Protein 30 mg/dl mg/dL (Negative) 08/04/21 14:45 Urine Glucose (UA) >=500 mg/dL (Negative) 08/04/21 14:45 Urine Ketones 80 mg/dL (Negative) 08/04/21 14:45 Urine Blood Neg (Negative) 08/04/21 14:45 Urine Nitrite Neg (Negative) 08/04/21 14:45 Urine Bilirubin Neg (Negative) 08/04/21 14:45 Urine Urobilinogen < 2.0 mg/dL (<2.0) 08/04/21 14:45 Ur Leukocyte Esterase Neg (Negative) 08/04/21 14:45 Urine WBC (Auto) 1.0 /HPF (0.0-6.0) 08/04/21 14:45 Urine RBC (Auto) 2.0 /HPF (0.0-6.0) 08/04/21 14:45 Urine Mucus Few /HPF 08/04/21 14:45 Coronavirus (PCR) Positive (Negative) A 08/05/21 08:33 Microbiology: Microbiology 08/03/21 11:28 Peripheral/Venous Blood Culture - Preliminary NO GROWTH AFTER 4 DAYS 08/03/21 11:28 Peripheral/Venous Blood Culture - Preliminary NO GROWTH AFTER 4 DAYS Berry/IV: Voiding Method Toilet Active Medications - Current Medications Current Medications: Generic Name Dose Route Start Last Admin Trade Name Freq PRN Reason Stop Dose Admin Acetaminophen 650 mg 08/03/21 13:22 Acetaminophen 325 Mg Tab PO Q4H PRN Pain MILD(1-3)/Fever >100.5/MASSEY Albuterol 2.5 mg 08/03/21 13:22 Albuterol 2.5 Mg/3 Ml Nebu IH Q4HRT PRN Shortness Of Breath Amlodipine Besylate 10 mg 08/05/21 10:00 08/08/21 09:27 Amlodipine 10 Mg Tab PO 10 mg DAILY SHENG Administration Ascorbic Acid 500 mg 08/03/21 22:00 08/08/21 09:27 Ascorbic Acid 500 Mg Tab PO 500 mg BID SHENG Administration Aspirin 81 mg 08/05/21 10:00 08/08/21 09:27 Aspirin Ec 81 Mg Tab PO 81 mg QDAY SHENG Administration Cholecalciferol 1,000 unit 08/04/21 11:00 08/08/21 09:27 Cholecalciferol (Vit D3) 1000 Unit (25 Mcg) Tab PO 1,000 unit DAILY SHENG Administration Dextrose 0 ml 08/07/21 09:31 Dextrose 10% *Hypoglycemia IV PRN PRN Hypoglycemia Heparin Sodium (Porcine) 5,000 unit 08/03/21 22:00 08/08/21 09:28 Heparin 5,000 Unit/1 Ml Vial SUB-Q 5,000 unit Q12HR SHENG Administration Hydromorphone HCl 0.5 mg 08/03/21 13:22 Hydromorphone 1 Mg/1 Ml Inj IV Q23H PRN Pain , Severe (7-10) Insulin Human Isoph/Insulin Regular 10 unit 08/05/21 09:00 08/08/21 09:26 Insulin Nph/Regular 70/30 Inj SUB-Q 10 unit QDDIAB SHENG Administration Insulin Human Lispro 0 unit 08/04/21 09:00 08/08/21 13:12 Insulin Lispro 100 Unit/Ml SUB-Q 4 unit ACHS SHENG Administration Protocol Losartan Potassium 100 mg 08/05/21 10:00 08/08/21 09:34 Losartan 50 Mg Tab PO 100 mg QDAY SHENG Administration Methylprednisolone Sodium Succinate 40 mg 08/04/21 10:00 08/08/21 09:27 Methylprednisolone Sod Succinate 40 Mg/1 Ml Inj IV 40 mg QDAY SHENG Administration Ondansetron HCl 4 mg 08/03/21 13:22 Ondansetron 4 Mg/2 Ml Inj IV Q8H PRN Nausea And Vomiting Oxycodone/Acetaminophen 1 tab 08/03/21 13:22 Oxycodone /Acetaminophen 5-325mg Tab PO Q16H PRN Pain, Moderate (4-6) Pravastatin Sodium 10 mg 08/05/21 22:00 08/07/21 22:56 Pravastatin 20 Mg Tab PO 10 mg QHS SHENG Administration Pseudoephedrine/Acetam/Chlorphenir 10 ml 08/03/21 22:40 08/07/21 10:15 Guaifenesin/Codeine 100-10mg Oral Liqd 5 Ml PO 10 ml Q6H PRN Administration Cough Sodium Chloride 10 ml 08/03/21 22:00 08/08/21 09:28 Sodium Chloride 0.9% 10 Ml Flush Syringe IV 10 ml BID SHENG Administration Sodium Chloride 10 ml 08/03/21 13:22 Sodium Chloride 0.9% 10 Ml Flush Syringe IV PRN PRN LINE FLUSH Zinc Sulfate 220 mg 08/03/21 22:00 08/08/21 09:27 Zinc Sulfate 220 Mg Cap PO 220 mg BID SHENG Administration Nutrition/Malnutrition Assess - Dietary Evaluation Nutrition/Malnutrition Findings: Nutrition Notes Start: 08/04/21 19:03 Freq: Status: Active Protocol: Document 08/04/21 19:03 JODI (Rec: 08/04/21 19:13 JODI [email or web address]) Nutrition Notes 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 Current Diet Cardiac Diet (since D 08/03). 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 Weight Status Overweight Subjective/Other Information RD consult for skin risk assessment. Pt's PO intake of meals has been Good (75%), according to ADL notes. Pt shows no signs of concern for skin risk at the time, according to Physical Assessment History notes. Percent of energy/protein needs met: Prescribed Cardiac Diet provides for energy/protein needs (2,230 Kcal/85 g) during LOS. GI Symptoms None Food Allergy No Skin Integrity/Comment Clear, warm, dry. Current % PO Good (75-100%) Minimum of two criteria No Nutrition Intervention Follow-Up By: 08/11/21 Additional Comments Continue monitoring food tolerance, %PO intake of meals , and BM.
--- NOTE | 2021-08-08 13:37 | Progress Note ---
Assessment and Plan Assessment and plan: #Acute hypoxic respiratory failure #COVID 19 pneumonia -Currently on 4 L nasal cannula, will wean as tolerated -patient qualifies for home O2; having trouble finding a company who will provide oxygen due to the patients living conditions -discharge pending home O2 set up -CT angio of chest negative for PE -Continue Solu-Medrol and COVID vitamins -Remdesivir not started due to patient receiving course at outside hospital -s/p Azithromycin and Rocephin -Coronavirus PCR 08/04 indeterminate; repeat 08/05 positive -Infectious disease following, assistance appreciated #Elevated D-dimer -D-dimer 1615 -CT findings as above -Likely secondary to COVID infection #Hypertension -continue home antihypertensive medications #Type 2 diabetes -Continue sliding scale & Humulin 10 units twice daily -Patient takes oral medications at home; will hold while inpatient -Goal glucose 140-180 while inpatient Disposition Plan: pending home O2 set up History Interval history: Patient did not leave due to inability to find company to provide oxygen since he lives in a camper. Patient has no complaints at this time. Hospitalist Physical - Physical exam Narrative exam: GENERAL: Well-developed well-nourished. In bed in no acute distress. HEENT: Nasal cannula in place 4 L/min CHEST/LUNGS: Coarse breath sounds bilaterally. HEART/CARDIOVASCULAR: RRR. No murmur, rubs or gallops appreciated. ABDOMEN: +BS. NT/ND. SKIN: No rashes noted. NEURO: No focal motor deficit. Follows all commands and is ambulatory. MUSCULOSKELETAL: No joint effusion EXTREMITIES: No cyanosis, clubbing or edema. PSYCH: Cooperative. - Constitutional Vitals: Temp Pulse Resp BP Pulse Ox 98.9 F 85 17 137/74 95 08/07/21 16:08 08/08/21 09:34 08/08/21 01:00 08/07/21 16:08 08/08/21 11:38 General appearance: Present: mild distress HEART Score - HEART Score Troponin: Troponin T < 0.010 ng/mL (0.00-0.029) 08/03/21 11:28 Results - Labs CBC & Chem 7: 08/04/21 04:28 08/07/21 04:46 Labs: Laboratory Last Values WBC 4.6 K/mm3 (4.5-11.0) 08/04/21 04:28 RBC 3.90 M/mm3 (3.65-5.03) 08/04/21 04:28 Hgb 11.3 gm/dl (11.8-15.2) L 08/04/21 04:28 Hct 34.1 % (35.5-45.6) L 08/04/21 04:28 MCV 87 fl (84-94) 08/04/21 04:28 MCH 29 pg (28-32) 08/04/21 04:28 MCHC 33 % (32-34) 08/04/21 04:28 RDW 13.4 % (13.2-15.2) 08/04/21 04:28 Plt Count 205 K/mm3 (140-440) 08/04/21 04:28 Lymph % (Auto) 13.3 % (13.4-35.0) L 08/04/21 04:28 [place] % (Auto) 1.6 % (0.0-7.3) 08/04/21 04:28 Eos % (Auto) 0.0 % (0.0-4.3) 08/04/21 04:28 Baso % (Auto) 0.1 % (0.0-1.8) 08/04/21 04:28 Lymph # (Auto) 0.6 K/mm3 (1.2-5.4) L 08/04/21 04:28 [place] # (Auto) 0.1 K/mm3 (0.0-0.8) 08/04/21 04:28 Eos # (Auto) 0.0 K/mm3 (0.0-0.4) 08/04/21 04:28 Baso # (Auto) 0.0 K/mm3 (0.0-0.1) 08/04/21 04:28 Seg Neutrophils % 85.0 % (40.0-70.0) H 08/04/21 04:28 Seg Neutrophils # 3.9 K/mm3 (1.8-7.7) 08/04/21 04:28 PT 12.9 Sec. (12.2-14.9) 08/03/21 11:28 INR 0.88 (0.87-1.13) 08/03/21 11:28 D-Dimer 1301.58 ng/mlDDU (0-234) H 08/06/21 06:19 Sodium 139 mmol/L (137-145) 08/07/21 04:46 Potassium 4.1 mmol/L (3.6-5.0) 08/07/21 04:46 Chloride 103.6 mmol/L (98-107) 08/07/21 04:46 Carbon Dioxide 27 mmol/L (22-30) 08/07/21 04:46 Anion Gap 13 mmol/L 08/07/21 04:46 BUN 16 mg/dL (9-20) 08/07/21 04:46 Creatinine 0.6 mg/dL (0.8-1.3) L 08/07/21 04:46 Estimated GFR > 60 ml/min 08/07/21 04:46 BUN/Creatinine Ratio 27 % 08/07/21 04:46 Glucose 223 mg/dL (75-100) H 08/07/21 04:46 POC Glucose 255 mg/dL (70-105) H 08/08/21 12:06 Calcium 8.5 mg/dL (8.4-10.2) 08/07/21 04:46 Magnesium 1.80 mg/dL (1.7-2.3) 08/03/21 11:28 Ferritin 276.3 ng/mL (30.0-300.0) 08/06/21 06:19 Total Bilirubin 0.20 mg/dL (0.1-1.2) 08/07/21 04:46 AST 8 units/L (5-40) 08/07/21 04:46 ALT 18 units/L (7-56) 08/07/21 04:46 Alkaline Phosphatase 53 units/L (35-129) 08/07/21 04:46 Lactate Dehydrogenase 426 units/L (91-180) H 08/03/21 11:28 Troponin T < 0.010 ng/mL (0.00-0.029) 08/03/21 11:28 C-Reactive Protein 1.10 mg/dL (0.00-1.30) 08/06/21 06:19 NT-Pro-B Natriuret Pep 595.3 pg/mL (0-900) 08/03/21 11:28 Total Protein 5.9 g/dL (6.3-8.2) L 08/07/21 04:46 Albumin 3.1 g/dL (3.9-5) L 08/07/21 04:46 Albumin/Globulin Ratio 1.1 % 08/07/21 04:46 Procalcitonin < 0.05 ng/mL (<0.15) 08/06/21 06:19 Urine Color Yellow (Yellow) 08/04/21 14:45 Urine Turbidity Hazy (Clear) 08/04/21 14:45 Urine pH 5.0 (5.0-7.0) 08/04/21 14:45 Ur Specific [place] 1.028 (1.003-1.030) 08/04/21 14:45 Urine Protein 30 mg/dl mg/dL (Negative) 08/04/21 14:45 Urine Glucose (UA) >=500 mg/dL (Negative) 08/04/21 14:45 Urine Ketones 80 mg/dL (Negative) 08/04/21 14:45 Urine Blood Neg (Negative) 08/04/21 14:45 Urine Nitrite Neg (Negative) 08/04/21 14:45 Urine Bilirubin Neg (Negative) 08/04/21 14:45 Urine Urobilinogen < 2.0 mg/dL (<2.0) 08/04/21 14:45 Ur Leukocyte Esterase Neg (Negative) 08/04/21 14:45 Urine WBC (Auto) 1.0 /HPF (0.0-6.0) 08/04/21 14:45 Urine RBC (Auto) 2.0 /HPF (0.0-6.0) 08/04/21 14:45 Urine Mucus Few /HPF 08/04/21 14:45 Coronavirus (PCR) Positive (Negative) A 08/05/21 08:33 Microbiology: Microbiology 08/03/21 11:28 Peripheral/Venous Blood Culture - Preliminary NO GROWTH AFTER 4 DAYS 08/03/21 11:28 Peripheral/Venous Blood Culture - Preliminary NO GROWTH AFTER 4 DAYS Berry/IV: Voiding Method Toilet Active Medications - Current Medications Current Medications: Generic Name Dose Route Start Last Admin Trade Name Freq PRN Reason Stop Dose Admin Acetaminophen 650 mg 08/03/21 13:22 Acetaminophen 325 Mg Tab PO Q4H PRN Pain MILD(1-3)/Fever >100.5/MASSEY Albuterol 2.5 mg 08/03/21 13:22 Albuterol 2.5 Mg/3 Ml Nebu IH Q4HRT PRN Shortness Of Breath Amlodipine Besylate 10 mg 08/05/21 10:00 08/08/21 09:27 Amlodipine 10 Mg Tab PO 10 mg DAILY SHENG Administration Ascorbic Acid 500 mg 08/03/21 22:00 08/08/21 09:27 Ascorbic Acid 500 Mg Tab PO 500 mg BID SHENG Administration Aspirin 81 mg 08/05/21 10:00 08/08/21 09:27 Aspirin Ec 81 Mg Tab PO 81 mg QDAY SHENG Administration Cholecalciferol 1,000 unit 08/04/21 11:00 08/08/21 09:27 Cholecalciferol (Vit D3) 1000 Unit (25 Mcg) Tab PO 1,000 unit DAILY SHENG Administration Dextrose 0 ml 08/07/21 09:31 Dextrose 10% *Hypoglycemia IV PRN PRN Hypoglycemia Heparin Sodium (Porcine) 5,000 unit 08/03/21 22:00 08/08/21 09:28 Heparin 5,000 Unit/1 Ml Vial SUB-Q 5,000 unit Q12HR SHENG Administration Hydromorphone HCl 0.5 mg 08/03/21 13:22 Hydromorphone 1 Mg/1 Ml Inj IV Q23H PRN Pain , Severe (7-10) Insulin Human Isoph/Insulin Regular 10 unit 08/05/21 09:00 08/08/21 09:26 Insulin Nph/Regular 70/30 Inj SUB-Q 10 unit QDDIAB SHENG Administration Insulin Human Lispro 0 unit 08/04/21 09:00 08/08/21 13:12 Insulin Lispro 100 Unit/Ml SUB-Q 4 unit ACHS SHENG Administration Protocol Losartan Potassium 100 mg 08/05/21 10:00 08/08/21 09:34 Losartan 50 Mg Tab PO 100 mg QDAY SHENG Administration Methylprednisolone Sodium Succinate 40 mg 08/04/21 10:00 08/08/21 09:27 Methylprednisolone Sod Succinate 40 Mg/1 Ml Inj IV 40 mg QDAY SHENG Administration Ondansetron HCl 4 mg 08/03/21 13:22 Ondansetron 4 Mg/2 Ml Inj IV Q8H PRN Nausea And Vomiting Oxycodone/Acetaminophen 1 tab 08/03/21 13:22 Oxycodone /Acetaminophen 5-325mg Tab PO Q16H PRN Pain, Moderate (4-6) Pravastatin Sodium 10 mg 08/05/21 22:00 08/07/21 22:56 Pravastatin 20 Mg Tab PO 10 mg QHS SHENG Administration Pseudoephedrine/Acetam/Chlorphenir 10 ml 08/03/21 22:40 08/07/21 10:15 Guaifenesin/Codeine 100-10mg Oral Liqd 5 Ml PO 10 ml Q6H PRN Administration Cough Sodium Chloride 10 ml 08/03/21 22:00 08/08/21 09:28 Sodium Chloride 0.9% 10 Ml Flush Syringe IV 10 ml BID SHENG Administration Sodium Chloride 10 ml 08/03/21 13:22 Sodium Chloride 0.9% 10 Ml Flush Syringe IV PRN PRN LINE FLUSH Zinc Sulfate 220 mg 08/03/21 22:00 08/08/21 09:27 Zinc Sulfate 220 Mg Cap PO 220 mg BID SHENG Administration Nutrition/Malnutrition Assess - Dietary Evaluation Nutrition/Malnutrition Findings: Nutrition Notes Start: 08/04/21 19:03 Freq: Status: Active Protocol: Document 08/04/21 19:03 JODI (Rec: 08/04/21 19:13 JODI [id number]) Nutrition Notes 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 Current Diet Cardiac Diet (since D 08/03). 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 Weight Status Overweight Subjective/Other Information RD consult for skin risk assessment. Pt's PO intake of meals has been Good (75%), according to ADL notes. Pt shows no signs of concern for skin risk at the time, according to Physical Assessment History notes. Percent of energy/protein needs met: Prescribed Cardiac Diet provides for energy/protein needs (2,230 Kcal/85 g) during LOS. GI Symptoms None Food Allergy No Skin Integrity/Comment Clear, warm, dry. Current % PO Good (75-100%) Minimum of two criteria No Nutrition Intervention Follow-Up By: 08/11/21 Additional Comments Continue monitoring food tolerance, %PO intake of meals , and BM.
--- NOTE | 2021-08-09 20:38 | Electrocardiograph Report ---
[facility] Test Date: 2021-08-03 Test Time: 11:42:12 Pat Name: PAMELA DUMONT Department: Room: A374 Gender: M Housesmith: MILENA : 1955 Requested By: SERGIO RAND Order Number: [id number] Reading MD: John Reyes Measurements Intervals [place] Rate: 92 P: 23 WY: 176 QRS: -3 QRSD: 101 T: 7 QT: 372 QTc: 461 Interpretive Statements Sinus rhythm [id number] No previous ECG available for comparison Electronically Signed On 08-09-2021 20:37:43 EST by John Reyes
== END 2021-08-08 16:30 | disposition left against medical advice (07) | DRG 177 ==
LOC: ED 10:28 → 3A 13:22
PROVIDERS: ADMIT Internal Medicine; ATTEND Student in an Organized Health Care Education/Training Program
PROC: XW033E5 Introduction of Remdesivir Anti-infective into Peripheral Vein, Percutaneous Approach, New Technology Group 5 (ICD-10-PCS; principal; 2021-08-04)
DX: U07.1 COVID-19 (principal); J96.01 Acute respiratory failure with hypoxia; J12.82 Pneumonia due to coronavirus disease 2019; E66.2 Morbid (severe) obesity with alveolar hypoventilation; Z53.29 Procedure and treatment not carried out because of patient's decision for other reasons; E88.81 Metabolic syndrome and other insulin resistance; Z83.3 Family history of diabetes mellitus; Z82.49 Family history of ischemic heart disease and other diseases of the circulatory system; Z68.28 Body mass index [BMI] 28.0-28.9, adult
CPT/HCPCS: 36415; 71045; 71275; 80048; 80053; 81001; 82728; 82947; 82962; 83615; 83735; 83880; 84145; 84484; 85025; 85379; 85610; 86140; 87040; 93005; 94640; 94760; G0378; Q0177; Q9967; J0456; J0696; J1100; J1644; J1815; J2920; U0003